=== PATIENT | male | born 1995 | race Caucasian/White ===

== ENCOUNTER 2019-04-15 14:51 | Emergency (ER) | payer BC ==
[~2019-04-15] VITALS: Ht 180.3 cm; Wt 94.0 kg
[2019-04-15 15:03] VITALS: BP 106/53
[2019-04-15] MEDS ORDERED: loperamide 2mg capsule PO ONE (15:20)
[2019-04-15] MEDS ORDERED: ondansetron 4mg rapidly disintigrating tab PO ONE (15:20)
[2019-04-15] MEDS ORDERED: ONDA4TAB6 PO (15:35)
== END 2019-04-15 15:49 | disposition home or self-care (01) ==
LOC: EDSEX 14:51 → ER 14:51
DX: R19.7 Diarrhea, unspecified (principal); R10.84 Generalized abdominal pain; F17.200 Nicotine dependence, unspecified, uncomplicated; Z79.899 Other long term (current) drug therapy
CPT/HCPCS: 99283; J2405

== ENCOUNTER 2019-05-19 07:59 | Emergency (ER) | payer BC ==
[~2019-05-19] VITALS: Ht 180.3 cm; Wt 93.3 kg
[~2019-05-19 07:59] MED LIST: ONDA4TAB6 PO
[2019-05-19] MEDS ORDERED: sucralfate 1gm/10ml UD suspension PO ONE (08:25)
[2019-05-19] MEDS ORDERED: LIDOcaine Viscous 15ml cup MM ONE (08:25)
[2019-05-19] MEDS ORDERED: pantoprazole 40mg Tablet.DR PO ONE (08:25)
[2019-05-19 08:29] LABS: BASOPHILS % (AUTO) 0.6 % (0-1); EOSINOPHILS # (AUTO) 0.2 X10'3 (0-0.9); EOSINOPHILS % (AUTO) 3.1 % (0-6); HEMATOCRIT 43.2 % (42.0-52.0); HEMOGLOBIN 14.8 g/dl (14.0-17.9); LYMPHOCYTES # (AUTO) 2.8 X10'3 (1.1-4.8); LYMPHOCYTES % (AUTO) 44.4 % (21-51); MEAN CORPUSCULAR HEMOGLOBIN 32.6 PG (27.0-31.0); MEAN CORPUSCULAR HGB CONC 34.3 g/dL (33.0-36.5); MEAN CORPUSCULAR VOLUME 95.1 FL (78-98); MEAN PLATELET VOLUME 8.1 FL (7.4-10.4); MONOCYTES # (AUTO) 0.9 X10'3 (0-0.9); NEUTROPHILS # (AUTO) 2.4 X10'3 (1.8-7.7); NEUTROPHILS % (AUTO) 37.9 % (42-75); PLATELET COUNT 278 X10'3 (140-440); RED BLOOD COUNT 4.54 X10'6 (4.70-6.10); RED CELL DISTRIBUTION WIDTH 13.2 % (11.5-14.5); WHITE BLOOD COUNT 6.2 X10'3 (4.5-11.0)
[2019-05-19 08:30] LABS: CLARITY,URINE CLEAR (Clear); COLOR,URINE YELLOW (Yellow); GLUCOSE, URINE NEGATIVE (Neg); KETONES,URINE NEGATIVE (Neg); LEUKOCYTE ESTERASE ,URINE NEGATIVE (Neg); NITRITES, URINE NEGATIVE (Neg); OCCULT BLOOD,URINE NEGATIVE (Neg); PH,URINE 8.5 (4.8-8.0); PROTEIN,URINE NEGATIVE (Neg); UROBILINOGEN,URINE 0.2 E.U/dL (0.2-1.0)
[2019-05-19 08:33] LABS: UA COLLECTION TYPE CLN CATCH MIDSTREAM
[2019-05-19 08:39] LABS: ALANINE AMINOTRANSFERASE 25 U/L (12-78); ALBUMIN/GLOBULIN RATIO 1.2 (1.1-1.5); ALKALINE PHOSPHATASE 79 IU/L (46-116); ANION GAP 8 (8-16); ASPARTATE AMINO TRANSFERASE 17 U/L (10-37); BILIRUBIN,TOTAL 0.3 MG/DL (0.1-1.0); BLOOD UREA NITROGEN 16 MG/DL (7-18); BUN/CREATININE RATIO 14.8 (5.4-32.0); CALCIUM 9.2 MG/DL (8.5-10.1); CHLORIDE 105 MMOL/L (99-107); CREATININE 1.08 MG/DL (0.60-1.10); GLUCOSE 109 MG/DL (70-104); LIPASE 95 U/L (73-393); POTASSIUM 4.2 MMOL/L (3.5-5.1); SODIUM 143 MMOL/L (135-145); TOTAL CARBON DIOXIDE 29.8 MMOL/L (24-32); TOTAL PROTEIN 7.4 G/DL (6.4-8.2); eGFR 83 ML/MIN
[2019-05-19] MEDS ORDERED: SUCR1TAB34 PO (08:52)
[2019-05-19] MEDS ORDERED: PANT-47 PO (08:52)
[2019-05-19 09:13] VITALS: BP 125/75
== END 2019-05-19 09:14 | disposition home or self-care (01) ==
LOC: ER 08:00
DX: R10.13 Epigastric pain (principal); K21.9 Gastro-esophageal reflux disease without esophagitis
CPT/HCPCS: 36415; 80053; 81003; 83690; 85025; 85610; 99284

== ENCOUNTER 2019-10-02 20:04 | Emergency (ER) | payer BC, MEDICAID ==
[~2019-10-02] VITALS: Ht 180.3 cm; Wt 91.0 kg
[~2019-10-02 20:04] MED LIST changes: +PANT-47 PO; +SUCR1TAB34 PO
[2019-10-02] MEDS ORDERED: IBUP-1984 PO (21:57)
[2019-10-02 22:11] VITALS: BP 130/80
== END 2019-10-02 22:12 | disposition home or self-care (01) ==
LOC: ER 20:05
DX: M70.22 Olecranon bursitis, left elbow (principal); Z79.899 Other long term (current) drug therapy; Y93.89 Activity, other specified
CPT/HCPCS: 99282

== ENCOUNTER 2023-03-21 10:21 | Inpatient (IN) | payer BC, MEDICAID, OTHER ==
[~2023-03-21] VITALS: Ht 180.3 cm; Wt 85.7 kg
[2023-03-21] MEDS ORDERED: ondansetron/PF 4mg/2ml inj IV ONE (11:50)
[2023-03-21] MEDS ORDERED: morphine 4 MG/ML inj SYRINge IV ONE (11:50)
[2023-03-21 12:21] LABS: BASOPHILS # (AUTO) 0.2 X10'3 (0-0.2); BASOPHILS % (AUTO) 1.3 % (0-1); EOSINOPHILS % (AUTO) 0.2 % (0-6); HEMATOCRIT 43.8 % (42.0-52.0); LYMPHOCYTES # (AUTO) 1.6 X10'3 (1.1-4.8); LYMPHOCYTES % (AUTO) 11.5 % (21-51); MEAN CORPUSCULAR HEMOGLOBIN 32.5 PG (27.0-31.0); MEAN CORPUSCULAR HGB CONC 34.3 g/dL (33.0-36.5); MEAN CORPUSCULAR VOLUME 94.8 FL (78-98); MEAN PLATELET VOLUME 8.3 FL (7.4-10.4); MONOCYTES # (AUTO) 1.6 X10'3 (0-0.9); MONOCYTES % (AUTO) 11.9 % (2-12); NEUTROPHILS # (AUTO) 10.4 X10'3 (1.8-7.7); NEUTROPHILS % (AUTO) 75.1 % (42-75); PLATELET COUNT 245 X10'3 (140-440); RED BLOOD COUNT 4.62 X10'6 (4.70-6.10); RED CELL DISTRIBUTION WIDTH 12.9 % (11.5-14.5); WHITE BLOOD COUNT 13.8 X10'3 (4.5-11.0)
--- NOTE | 2023-03-21 12:27 | NUR ---
VASCULAR AT BEDSIDE
[2023-03-21 12:39] LABS: ALANINE AMINOTRANSFERASE 954 U/L (12-78); ALBUMIN 3.5 G/DL (3.4-5.0); ALBUMIN/GLOBULIN RATIO 0.9 (1.1-1.5); ALKALINE PHOSPHATASE 74 IU/L (46-116); ANION GAP 15 (8-16); BILIRUBIN,TOTAL 0.7 MG/DL (0.1-1.0); BLOOD UREA NITROGEN 90 MG/DL (7-18); CALCIUM 9.2 MG/DL (8.5-10.1); CHLORIDE 90 MMOL/L (99-107); CREATININE 6.93 MG/DL (0.60-1.10); GLUCOSE 116 MG/DL (70-104); POTASSIUM 4.6 MMOL/L (3.5-5.1); SODIUM 129 MMOL/L (135-145); TOTAL CARBON DIOXIDE 24.5 MMOL/L (24-32); TOTAL PROTEIN 7.2 G/DL (6.4-8.2); eGFR 9 ML/MIN
[2023-03-21 12:42] LABS: ASPARTATE AMINO TRANSFERASE 1921 U/L (10-37)
[2023-03-21] MEDS ORDERED: CefTRIAXone 2gm/D5W 50ml BAG 50 ML IV ONE (13:00)
[2023-03-21] MEDS ORDERED: normal saline 1000ml 1,000 ML IV ONE ×3 (13:00→15:00)
[2023-03-21 13:34] LABS: MAGNESIUM 2.5 MG/DL (1.5-2.4)
[2023-03-21] MEDS ORDERED: CLINDAMYCIN 600mg IN NS 50ML 50 ML IV ONE (14:00)
[2023-03-21] MEDS ORDERED: clindamycin 600mg/D5W 50ml 50 ML IV ONE (14:05)
[2023-03-21 14:30] LABS: CREATINE KINASE 77837 U/L (39-308)
[2023-03-21] MEDS ORDERED: LidoCAINE 2% Topical Jelly 11mL syringe TOP ONE (15:00)
[2023-03-21] MEDS ORDERED: sodium bicarbonate 1meq/ml syr 150 ML in dextrose 5%-water 850 ML IV SCH (15:15)
[2023-03-21] MEDS: sodium bicarbonate 1meq/ml syr 150 ML in dextrose 5%-water 1,000 ML IV SCH (15:15)
[2023-03-21] MEDS ORDERED: vancomycin/NS 1 GM ADD-VANTAGE 250 ML IV ONE (15:25)
[2023-03-21] MEDS ORDERED: ACYC-126 PO (15:40)
[2023-03-21 16:11] LABS: CLARITY,URINE SLIGHTLY CLOUDY (Clear); COLOR,URINE YELLOW (Yellow); GLUCOSE, URINE NEGATIVE (Neg); KETONES,URINE NEGATIVE (Neg); LEUKOCYTE ESTERASE ,URINE NEGATIVE (Neg); NITRITES, URINE NEGATIVE (Neg); OCCULT BLOOD,URINE MODERATE (Neg); PH,URINE 5.5 (4.8-8.0); PROTEIN,URINE 30 mg/dl (Neg); UROBILINOGEN,URINE 0.2 E.U/dL (0.2-1.0)
[2023-03-21 16:14] LABS: UA COLLECTION TYPE FOLEY CATH
[2023-03-21 16:24] LABS: BACTERIA,URINE 1+ /HPF (Neg)
[2023-03-21 16:25] LABS: SQUAMOUS EPITHELIAL CELL,UR NONE SEEN /LPF (FEW)
[2023-03-21] MEDS ORDERED: magnesium hydroxide 30ml (MOM) UD suspension PO PRN (16:30)
[2023-03-21] MEDS ORDERED: magnesium 4gm in 100ml NS 100 ML IV PRN (16:30)
[2023-03-21] MEDS ORDERED: magnesium 2GM in 50ml NS 50 ML IV PRN (16:30)
[2023-03-21] MEDS ORDERED: mag hydrox/Alum hydrox/simeth 30ml oral suspension PO PRN (16:30)
[2023-03-21] MEDS ORDERED: potassium Cl 20 mEq SR tablet PO PRN ×2 (16:30)
[2023-03-21] MEDS ORDERED: magnesium Cl slow-release 64mg tablet PO PRN (16:30)
[2023-03-21] MEDS ORDERED: potassium Cl 40MEQ/1/2NS 520ml 520 ML IV PRN (16:30)
[2023-03-21] MEDS ORDERED: morphine 2 MG/ML inj. syringe IV PRN (16:30)
[2023-03-21] MEDS: normal saline 1000ml 1,000 ML IV SCH ×2 (16:30→23:10)
[2023-03-21 16:37] LABS: URINE AMPHETAMINE SCREEN NEGATIVE (Neg); URINE BARBITUATE SCREEN NEGATIVE (Neg); URINE BENZODIAZEPINES SCREEN NEGATIVE (Neg); URINE CANNABINOID SCREEN POSITIVE (Neg); URINE COCAINE SCREEN NEGATIVE (Neg); URINE METHADONE SCREEN NEGATIVE (Neg); URINE OPIATE SCREEN POSITIVE (Neg); URINE PHENCYCLIDINE SCREEN NEGATIVE (Neg)
[2023-03-21 17:21] LABS: PHOSPHORUS 4.9 MG/DL (2.3-4.5)
[2023-03-21] MEDS ORDERED: vancomycin 1000 MG in NS 250ml X 1 ER IV PRN (17:25)
--- NOTE | 2023-03-21 19:20 | NUR ---
Pt arrived to unit from ED. A+O x4, 16Fr Ye in place. Admitted for cellulitis of the right arm. Pt was transported via hospital bed and 3 er transport staff.
[2023-03-21 19:30] VITALS: BP 158/90; PULSE 59; RESP 22; TEMP 98.5; O2SAT 96
[2023-03-21] MEDS: K and/or MAG REPLACEMENT MC SCH (20:00)
[2023-03-21 20:16] LABS: CREATINE KINASE 64881 U/L (39-308)
[2023-03-21] MEDS ORDERED: LORazepam 1 MG tablet PO ONE ×2 (20:30)
[2023-03-21 22:00] VITALS: BP 149/97; PULSE 62; RESP 20; TEMP 99.3; O2SAT 95
[2023-03-21] MEDS: ondansetron/PF 4mg/2ml inj IV PRN (22:43)
[2023-03-21] MEDS: morphine 2 MG/ML inj. syringe IV PRN (22:56)
[2023-03-21] MEDS: docusate sod 100mg capsule PO SCH (23:00)
[2023-03-22] VITALS (8 sets, daily range): BP systolic 140–190; BP diastolic 80–115; PULSE 50–75; RESP 16–25; TEMP 97–99; O2SAT 96–99
--- NOTE | 2023-03-22 01:56 | NUR ---
spoke top pharmacist regarding bicarb, clindamycin, and NS compatibility into one IV with Y site. Pharmacist stated it is fine to run them all into the same IV.
[2023-03-22] MEDS: sodium bicarbonate 1meq/ml syr 150 ML in dextrose 5%-water 1,000 ML IV SCH ×2 (02:02→13:46)
[2023-03-22] MEDS ORDERED: amLODIPine 2.5mg tablet PO ONE (02:45)
--- NOTE | 2023-03-22 02:46 | NUR ---
Nurse took 0200 VS on pt. BP via automatic cuff was 209/101 P-50, BP manually was 190/100. Dr. Figueroa was notified and ordered 2.5mg Norvasc po one time only, NORB.
[2023-03-22] MEDS ORDERED: VANCOMYCIN LEVEL IV ONE (03:00)
--- NOTE | 2023-03-22 06:35 | NUR ---
Problems reprioritized. Patient report given, questions answered & plan of care reviewed with Randi RN. Pt stable at shift change.
[2023-03-22 07:24] LABS: BASOPHILS % (AUTO) 0.4 % (0-1); EOSINOPHILS % (AUTO) 0.2 % (0-6); HEMATOCRIT 38.2 % (42.0-52.0); HEMOGLOBIN 13.3 g/dl (14.0-17.9); LYMPHOCYTES % (AUTO) 18.4 % (21-51); MEAN CORPUSCULAR HEMOGLOBIN 33.3 PG (27.0-31.0); MEAN CORPUSCULAR HGB CONC 34.9 g/dL (33.0-36.5); MEAN CORPUSCULAR VOLUME 95.3 FL (78-98); MEAN PLATELET VOLUME 8.3 FL (7.4-10.4); MONOCYTES # (AUTO) 1.3 X10'3 (0-0.9); MONOCYTES % (AUTO) 11.4 % (2-12); NEUTROPHILS # (AUTO) 7.7 X10'3 (1.8-7.7); NEUTROPHILS % (AUTO) 69.6 % (42-75); PLATELET COUNT 188 X10'3 (140-440); RED BLOOD COUNT 4.01 X10'6 (4.70-6.10); RED CELL DISTRIBUTION WIDTH 12.7 % (11.5-14.5); WHITE BLOOD COUNT 11.1 X10'3 (4.5-11.0)
[2023-03-22 07:33] LABS: ALANINE AMINOTRANSFERASE 610 U/L (12-78); ALBUMIN 2.7 G/DL (3.4-5.0); ALBUMIN/GLOBULIN RATIO 0.9 (1.1-1.5); ALKALINE PHOSPHATASE 75 IU/L (46-116); ANION GAP 15 (8-16); ASPARTATE AMINO TRANSFERASE 768 U/L (10-37); BILIRUBIN,TOTAL 0.6 MG/DL (0.1-1.0); BLOOD UREA NITROGEN 97 MG/DL (7-18); BUN/CREATININE RATIO 12.2 (10.0-20.0); CALCIUM 8.5 MG/DL (8.5-10.1); CHLORIDE 95 MMOL/L (99-107); CREATININE 7.92 MG/DL (0.60-1.10); GLUCOSE 121 MG/DL (70-104); MAGNESIUM 2.4 MG/DL (1.5-2.4); POTASSIUM 4.1 MMOL/L (3.5-5.1); SODIUM 132 MMOL/L (135-145); TOTAL CARBON DIOXIDE 22.3 MMOL/L (24-32); TOTAL PROTEIN 5.8 G/DL (6.4-8.2); eGFR 8 ML/MIN
[2023-03-22] MEDS ORDERED: ACYC-126 PO (07:53)
[2023-03-22 07:55] LABS: VANCOMYCIN,RANDOM 13.6 UG/ML
[2023-03-22] MEDS: clindamycin 600mg/D5W 50ml 50 ML IV SCH ×3 (08:24→15:46)
[2023-03-22] MEDS: CefTRIAXone/D5W-Rocephin 1gm 50 ML IV SCH (08:25)
[2023-03-22] MEDS: docusate sod 100mg capsule PO SCH ×2 (08:25→21:25)
[2023-03-22] MEDS: morphine 2 MG/ML inj. syringe IV PRN ×3 (08:25→21:27)
[2023-03-22] MEDS: normal saline 1000ml 1,000 ML IV SCH ×3 (08:26→19:10)
[2023-03-22] MEDS: heparin, porcine 5000 units/ml vial SQ SCH ×3 (08:35→15:46)
[2023-03-22] MEDS: K and/or MAG REPLACEMENT MC SCH (08:35)
--- NOTE | 2023-03-22 12:46 | NUR ---
ASSISTING RN WITH ADMISSION WORK, FAMILY AT BEDSIDE, PLAN OF CARE GIVEN, ANSWERED QUESTIONS. FAMILY SAID PT HAD BEEN WELL WITH RECOVERY, USE TO BE HEAVY ETOH ABUSE, ADMITS TO RECENTLY USING FENTANYL AND METH. REPORT TO PRIMARY RN
--- NOTE | 2023-03-22 12:49 | NUR ---
DO DIETZ, FATHER, MOOK CONKLIN, MOTHER,
--- NOTE | 2023-03-22 13:36 | NUR ---
Received order for consult. Met with patient in regards to substance use and to see if patient is interested in resources for treatment options. Patient is interested in outpatient resources. I talked to patient about medication to help with cravings. I gave patient a card for [facility] and my card to call me for any questions.
[2023-03-22] MEDS ORDERED: vancomycin 1000 MG in NS 250ml X 1 ER IV ONE (15:00)
--- NOTE | 2023-03-22 18:20 | NUR ---
Patient in room PCU 3018. I have received report from DICKSON Bryan and had the opportunity to ask questions and assume patient care.
[2023-03-22 19:03] LABS: CREATINE KINASE 27544 U/L (39-308)
[2023-03-23] MEDS: clindamycin 600mg/D5W 50ml 50 ML IV SCH ×3 (00:15→17:45)
[2023-03-23] MEDS: heparin, porcine 5000 units/ml vial SQ SCH ×3 (00:15→16:00)
[2023-03-23] MEDS: normal saline 1000ml 1,000 ML IV SCH ×3 (01:39→15:10)
[2023-03-23] MEDS: morphine 2 MG/ML inj. syringe IV PRN ×3 (01:40→20:07)
[2023-03-23 02:00] VITALS: BP 156/105; PULSE 54; RESP 14; TEMP 97.3; O2SAT 96
[2023-03-23] MEDS: VANCOMYCIN LEVEL IV SCH (03:00)
--- NOTE | 2023-03-23 06:27 | NUR ---
Problems reprioritized. Patient report given, questions answered & plan of care reviewed with DICKSON Bryan.
[2023-03-23 07:00] VITALS: BP 161/111; PULSE 53; RESP 14; TEMP 98; O2SAT 98
--- NOTE | 2023-03-23 07:04 | NUR ---
PATIENTS RIGHT ARM HAS GOTTEN PROGRESSIVLELY WORSE SINCE YESTERDAY WHEN I HAD PATIENT. THE ENTIRE ARM FROM HIS HAND TO HIS SHOULDER IS ROCK HARD AND HOT. YESTERDAY, THE FOREARM WAS ROCK HARD AND THE UPPER PART OF THE ARM WAS SOFTER. IMMEDIATELY CALLED DR NOVAK WHO CONSULTED ON PATIENT (ORTHO) AND HE DIDNT THINK ITS COMPARTMENT SYNDROME AT THIS POINT IT HAS BEEN WELL PAST 48 HOURS SINCE PATIENT HAD UNKNOWN TRAUMA/INGESTION OF DRUGS. NO NEW ORDERS RECEIVED FROM DR NOVAK. I THEN NOTIFIED DR BROOKS, RESIDENT WHO IS ASSIGNED TO PATIENT TODAY. SHE WILL COME AND ASSESS, NO NEW ORDERS EITHER. PT HAD HIS ARM IN A SLING AND IT WAS ELEVATED MOST OF THE NIGHT PER PATIENT AND THE NOC SHIFT RN. ARM ALSO IS HOT TO TOUCH AND PATIENT STATES HE CAN HARDLY MOVE HIS ARM AT ALL, 8/10 PAIN. WILL CONTINUE TO CLOSELY MONITOR
[2023-03-23] MEDS: CefTRIAXone/D5W-Rocephin 1gm 50 ML IV SCH (07:41)
[2023-03-23] MEDS: docusate sod 100mg capsule PO SCH ×2 (07:42→20:00)
[2023-03-23] MEDS: ondansetron/PF 4mg/2ml inj IV PRN ×2 (07:55→17:45)
[2023-03-23 08:01] LABS: SODIUM,URINE RANDOM < 15 MEQ/L
[2023-03-23 08:03] LABS: BASOPHILS % (AUTO) 0.3 % (0-1); EOSINOPHILS # (AUTO) 0.1 X10'3 (0-0.9); EOSINOPHILS % (AUTO) 0.4 % (0-6); HEMATOCRIT 42.5 % (42.0-52.0); HEMOGLOBIN 14.9 g/dl (14.0-17.9); LYMPHOCYTES # (AUTO) 2.4 X10'3 (1.1-4.8); LYMPHOCYTES % (AUTO) 19.6 % (21-51); MEAN CORPUSCULAR HEMOGLOBIN 33.3 PG (27.0-31.0); MEAN CORPUSCULAR HGB CONC 35.1 g/dL (33.0-36.5); MEAN PLATELET VOLUME 8.5 FL (7.4-10.4); MONOCYTES # (AUTO) 1.5 X10'3 (0-0.9); MONOCYTES % (AUTO) 12.1 % (2-12); NEUTROPHILS # (AUTO) 8.3 X10'3 (1.8-7.7); NEUTROPHILS % (AUTO) 67.6 % (42-75); PLATELET COUNT 227 X10'3 (140-440); RED BLOOD COUNT 4.48 X10'6 (4.70-6.10); RED CELL DISTRIBUTION WIDTH 12.6 % (11.5-14.5); WHITE BLOOD COUNT 12.2 X10'3 (4.5-11.0)
[2023-03-23] MEDS: amLODIPine 5mg tablet PO SCH ×2 (08:10→17:46)
[2023-03-23 08:38] LABS: ALANINE AMINOTRANSFERASE 453 U/L (12-78); ALBUMIN 2.6 G/DL (3.4-5.0); ALBUMIN/GLOBULIN RATIO 0.8 (1.1-1.5); ALKALINE PHOSPHATASE 77 IU/L (46-116); ANION GAP 19 (8-16); ASPARTATE AMINO TRANSFERASE 381 U/L (10-37); BILIRUBIN,TOTAL 0.6 MG/DL (0.1-1.0); BLOOD UREA NITROGEN 104 MG/DL (7-18); BUN/CREATININE RATIO 11.6 (10.0-20.0); CALCIUM 8.2 MG/DL (8.5-10.1); CHLORIDE 89 MMOL/L (99-107); CREATININE 8.95 MG/DL (0.60-1.10); GLUCOSE 103 MG/DL (70-104); MAGNESIUM 2.1 MG/DL (1.5-2.4); POTASSIUM 3.8 MMOL/L (3.5-5.1); SODIUM 130 MMOL/L (135-145); TOTAL CARBON DIOXIDE 22.2 MMOL/L (24-32); TOTAL PROTEIN 5.8 G/DL (6.4-8.2); VANCOMYCIN,RANDOM 21.1 UG/ML; eGFR 7 ML/MIN
[2023-03-23 10:03] LABS: OSMOLALITY UA 172 MOSM/K (50-1400)
[2023-03-23] MEDS ORDERED: LIDOcaine 1% 30ml preserv. free vial ONE (12:29)
[2023-03-23] MEDS ORDERED: heparin 1,000unit/ml 10ml vial 10 ML ONE (12:29)
[2023-03-23] MEDS ORDERED: diphenhydrAMINE 50 mg/ml inj ONE (12:30)
[2023-03-23] MEDS ORDERED: fentaNYL/PF 50MCG/1 ML 2ML syringe ONE (12:30)
[2023-03-23] MEDS ORDERED: heparin 1,000unit/ml 10ml vial 10 ML IV ONE (13:00)
[2023-03-23] MEDS ORDERED: albumin (human) 25% 100ml IV 100 ML IV PRN (13:00)
[2023-03-23] MEDS ORDERED: heparin 1,000 units/ml 10ml inj IV ONE (13:00)
[2023-03-23] MEDS ORDERED: mannitol 12.5gm/50mL VIAL IV ONE (13:00)
[2023-03-23] MEDS ORDERED: heparin 1,000 units/ml 10ml inj HE ONE ×2 (13:00)
[2023-03-23] MEDS ORDERED: hydrALAZINE 20mg/ml inj. IV STA (17:26)
--- NOTE | 2023-03-23 17:59 | NUR ---
FIRST HEMODIALYSIS FINISHED AND PATIENT TOLERATED WELL. BLOOD PRESSURE ACTUALLY WAS ELEVATED THROUGHOUT THE PROCEDURE. DR GEORGES IN TO SEE PATIENT AND SPOKE WITH THE PATIENT AND FATHER ABOUT PLAN OF CARE. ORDERS RECEIVED FOR A ONE TIME DOSE OF HYDRALZINE AND TO GIVE THE NORVASC THAT WAS HELD FOR HD. PT CONTINUES TO HAVE NAUSEA AND ACTUALLY IS HAVING LOOSE STOOL. WILL CONTINUE TO MONITOR STOOL FOR ANY SIGNS OF INFECTION. ORDERS RECEIVED FOR MRI OF THE RIGHT ARM. FAMILY DISCUSSED THEIR CONCERNS ABOUT THE ARM WITH THE "ADVISEMENT" TO CORRELATE WITH AN MRI. FAMILY AT BEDSIDE CURRENTLY, AND PT APPEARS TO BE IN GOOD SPIRITS
[2023-03-23 18:00] VITALS: BP 165/96; PULSE 71; RESP 15; TEMP 98; O2SAT 100
--- NOTE | 2023-03-23 18:30 | NUR ---
Patient in room PCU 3018. I have received report from Randi and had the opportunity to ask questions and assume patient care.
[2023-03-23 20:00] VITALS: RESP 15; O2SAT 95
[2023-03-23 22:03] VITALS: BP 151/101; PULSE 68; RESP 18; TEMP 98.4; O2SAT 98
--- NOTE | 2023-03-23 22:09 | NUR ---
Pt upset as he had an incontinent BM in bed and was frustrated with that, frustrated with being in hospital, and being in this condition. Reassured pt that it was OK , even appropriate to be frustrated. Helped pt to bathroom where we sat him on the toilet, got him cleaned, bed, linen, and gown changed, washed pt feet with soap and water per patient request as he felt he may have stepped in some fecal matter. Pt back in bed, much less frustrated, with clean linens and clean feet.
[2023-03-24] VITALS (11 sets, daily range): BP systolic 112–183; BP diastolic 31–100; PULSE 60–85; RESP 12–21; TEMP 97.9–99.1; O2SAT 95–98
[2023-03-24] MEDS: morphine 2 MG/ML inj. syringe IV PRN ×2 (00:22→05:09)
[2023-03-24] MEDS: heparin, porcine 5000 units/ml vial SQ SCH ×4 (00:22→23:51)
[2023-03-24] MEDS: clindamycin 600mg/D5W 50ml 50 ML IV SCH ×4 (00:23→23:46)
--- NOTE | 2023-03-24 00:45 | NUR ---
Pt BP at 183/100 HR 67, pt c/o headache. Dr. Figueroa call and advised who ordered Norvasc 2.5mg PO X1
[2023-03-24] MEDS ORDERED: amLODIPine 2.5mg tablet PO ONE ×2 (00:50→04:45)
[2023-03-24] MEDS: VANCOMYCIN LEVEL IV SCH (03:00)
[2023-03-24] MEDS: acetaminophen 325mg tablet PO PRN ×3 (05:15→23:51)
--- NOTE | 2023-03-24 06:13 | NUR ---
Problems reprioritized. Patient report given, questions answered & plan of care reviewed with Randi.
[2023-03-24 07:11] LABS: BASOPHILS % (AUTO) 0.1 % (0-1); EOSINOPHILS # (AUTO) 0.1 X10'3 (0-0.9); HEMATOCRIT 38.6 % (42.0-52.0); HEMOGLOBIN 13.6 g/dl (14.0-17.9); LYMPHOCYTES % (AUTO) 18.4 % (21-51); MEAN CORPUSCULAR HEMOGLOBIN 33.6 PG (27.0-31.0); MEAN CORPUSCULAR HGB CONC 35.1 g/dL (33.0-36.5); MEAN CORPUSCULAR VOLUME 95.8 FL (78-98); MEAN PLATELET VOLUME 8.5 FL (7.4-10.4); MONOCYTES # (AUTO) 1.5 X10'3 (0-0.9); MONOCYTES % (AUTO) 13.7 % (2-12); NEUTROPHILS # (AUTO) 7.3 X10'3 (1.8-7.7); NEUTROPHILS % (AUTO) 66.8 % (42-75); PLATELET COUNT 207 X10'3 (140-440); RED BLOOD COUNT 4.03 X10'6 (4.70-6.10); RED CELL DISTRIBUTION WIDTH 12.5 % (11.5-14.5)
[2023-03-24 07:24] LABS: ALANINE AMINOTRANSFERASE 304 U/L (12-78); ALBUMIN 2.3 G/DL (3.4-5.0); ALBUMIN/GLOBULIN RATIO 0.8 (1.1-1.5); ALKALINE PHOSPHATASE 63 IU/L (46-116); ANION GAP 11 (8-16); ASPARTATE AMINO TRANSFERASE 223 U/L (10-37); BILIRUBIN,TOTAL 0.4 MG/DL (0.1-1.0); BLOOD UREA NITROGEN 92 MG/DL (7-18); BUN/CREATININE RATIO 10.8 (10.0-20.0); CHLORIDE 92 MMOL/L (99-107); CREATININE 8.49 MG/DL (0.60-1.10); GLUCOSE 100 MG/DL (70-104); POTASSIUM 3.7 MMOL/L (3.5-5.1); SODIUM 124 MMOL/L (135-145); TOTAL CARBON DIOXIDE 20.8 MMOL/L (24-32); TOTAL PROTEIN 5.1 G/DL (6.4-8.2); VANCOMYCIN,RANDOM 14.8 UG/ML; eGFR 7 ML/MIN
[2023-03-24] MEDS: docusate sod 100mg capsule PO SCH ×2 (08:00→20:00)
[2023-03-24] MEDS: CefTRIAXone/D5W-Rocephin 1gm 50 ML IV SCH (08:39)
[2023-03-24] MEDS: ondansetron/PF 4mg/2ml inj IV PRN ×2 (08:57→23:49)
[2023-03-24] MEDS ORDERED: heparin 1,000 units/ml 10ml inj IV ONE (10:10)
[2023-03-24] MEDS ORDERED: heparin 1,000unit/ml 10ml vial 10 ML IV ONE (10:10)
[2023-03-24] MEDS ORDERED: albumin (human) 25% 100ml IV 100 ML IV PRN (10:10)
[2023-03-24] MEDS ORDERED: heparin 1,000 units/ml 10ml inj HE ONE ×2 (10:15)
[2023-03-24 10:41] LABS: CREATINE KINASE 9811 U/L (39-308)
[2023-03-24] MEDS ORDERED: vancomycin/NS 1 GM ADD-VANTAGE 250 ML X 1 DOSE IV ONE (11:00)
--- NOTE | 2023-03-24 18:20 | NUR ---
Patient in room PCU 3018. I have received report from Kristen FORMAN and had the opportunity to ask questions and assume patient care.
[2023-03-25] VITALS (7 sets, daily range): BP systolic 149–162; BP diastolic 90–110; PULSE 70–85; RESP 12–20; TEMP 97.4–98.8; O2SAT 95–99
[2023-03-25] MEDS: VANCOMYCIN LEVEL IV SCH (03:00)
--- NOTE | 2023-03-25 06:42 | NUR ---
Patient in room PCU 3018. I have received report from YOUSIF WINSTON, and had the opportunity to ask questions and assume patient care.
--- NOTE | 2023-03-25 06:45 | NUR ---
Problems reprioritized. Patient report given, questions answered & plan of care reviewed with Mojgan FORMAN.
[2023-03-25 07:34] LABS: BASOPHILS % (AUTO) 0.5 % (0-1); EOSINOPHILS # (AUTO) 0.3 X10'3 (0-0.9); EOSINOPHILS % (AUTO) 2.6 % (0-6); HEMATOCRIT 36.1 % (42.0-52.0); HEMOGLOBIN 12.8 g/dl (14.0-17.9); LYMPHOCYTES # (AUTO) 2.3 X10'3 (1.1-4.8); LYMPHOCYTES % (AUTO) 22.4 % (21-51); MEAN CORPUSCULAR HEMOGLOBIN 33.5 PG (27.0-31.0); MEAN CORPUSCULAR HGB CONC 35.5 g/dL (33.0-36.5); MEAN CORPUSCULAR VOLUME 94.6 FL (78-98); MEAN PLATELET VOLUME 8.3 FL (7.4-10.4); MONOCYTES # (AUTO) 1.6 X10'3 (0-0.9); MONOCYTES % (AUTO) 15.6 % (2-12); NEUTROPHILS % (AUTO) 58.9 % (42-75); PLATELET COUNT 190 X10'3 (140-440); RED BLOOD COUNT 3.82 X10'6 (4.70-6.10); RED CELL DISTRIBUTION WIDTH 12.6 % (11.5-14.5); WHITE BLOOD COUNT 10.2 X10'3 (4.5-11.0)
[2023-03-25] MEDS: clindamycin 600mg/D5W 50ml 50 ML IV SCH ×2 (07:35→16:07)
[2023-03-25] MEDS: docusate sod 100mg capsule PO SCH ×2 (08:00→19:15)
[2023-03-25 08:09] LABS: ALANINE AMINOTRANSFERASE 258 U/L (12-78); ALBUMIN 2.4 G/DL (3.4-5.0); ALBUMIN/GLOBULIN RATIO 0.9 (1.1-1.5); ALKALINE PHOSPHATASE 56 IU/L (46-116); ANION GAP 12 (8-16); ASPARTATE AMINO TRANSFERASE 169 U/L (10-37); BILIRUBIN,TOTAL 0.4 MG/DL (0.1-1.0); BLOOD UREA NITROGEN 75 MG/DL (7-18); BUN/CREATININE RATIO 10.2 (10.0-20.0); CALCIUM 7.8 MG/DL (8.5-10.1); CHLORIDE 93 MMOL/L (99-107); CREATININE 7.34 MG/DL (0.60-1.10); GLUCOSE 97 MG/DL (70-104); MAGNESIUM 2.1 MG/DL (1.5-2.4); POTASSIUM 3.5 MMOL/L (3.5-5.1); SODIUM 127 MMOL/L (135-145); TOTAL CARBON DIOXIDE 22.1 MMOL/L (24-32); TOTAL PROTEIN 5.2 G/DL (6.4-8.2); VANCOMYCIN,RANDOM 19.9 UG/ML; eGFR 9 ML/MIN
[2023-03-25] MEDS: CefTRIAXone/D5W-Rocephin 1gm 50 ML IV SCH (08:24)
[2023-03-25] MEDS: heparin, porcine 5000 units/ml vial SQ SCH ×2 (08:26→16:12)
[2023-03-25] MEDS: amLODIPine 5mg tablet PO SCH (08:28)
[2023-03-25 08:41] LABS: CREATINE KINASE 6574 U/L (39-308)
[2023-03-25] MEDS ORDERED: heparin 1,000unit/ml 10ml vial 10 ML IV ONE (09:15)
[2023-03-25] MEDS ORDERED: heparin 1,000 units/ml 10ml inj IV ONE (09:15)
[2023-03-25] MEDS ORDERED: albumin (human) 25% 100ml IV 100 ML IV PRN (09:15)
[2023-03-25] MEDS ORDERED: heparin 1,000 units/ml 10ml inj HE ONE ×2 (09:20)
--- NOTE | 2023-03-25 17:41 | NUR ---
PT WAS RELUCTANT TO HAVE HIS FC REMOVED. THE WATER WAS REMOVED FROM THE BALLOON. EVENTUALLY ALLOWED THE NURSE TO REMOVE FC. PT REPORTS THAT HE HAS VOIDED IN THE TOILET. PT ASKED TO USE URINAL FOR ACCURATE I's AND O's.
--- NOTE | 2023-03-25 18:28 | NUR ---
NON ADMINISTERED HEPARIN ADMINISTERED BY DIALYSIS NURSE DURING HD. PER HD NURSE SHE DOESN'T HAVE COMPUTER ACCESS.
--- NOTE | 2023-03-25 18:30 | NUR ---
Problems reprioritized. Patient report given, questions answered & plan of care reviewed with YOUSIF GRADY.
[2023-03-25] MEDS: acyclovir 200 MG capsule PO SCH (19:53)
[2023-03-26] VITALS (7 sets, daily range): BP systolic 148–164; BP diastolic 94–101; PULSE 65–84; RESP 14–21; TEMP 97.6–99.2; O2SAT 97–99
[2023-03-26] MEDS: clindamycin 150mg capsule PO SCH ×2 (00:59→07:31)
[2023-03-26] MEDS: heparin, porcine 5000 units/ml vial SQ SCH ×3 (01:00→16:00)
[2023-03-26] MEDS: VANCOMYCIN LEVEL IV SCH (03:15)
--- NOTE | 2023-03-26 04:02 | NUR ---
COPY CAMERA OPERATOR documentation: I have reviewed and agree with assessment performed and documented by MIGUEL A Johnson
[2023-03-26 06:14] LABS: BASOPHILS % (AUTO) 0.5 % (0-1); EOSINOPHILS # (AUTO) 0.3 X10'3 (0-0.9); EOSINOPHILS % (AUTO) 2.9 % (0-6); HEMATOCRIT 37.2 % (42.0-52.0); HEMOGLOBIN 13.1 g/dl (14.0-17.9); LYMPHOCYTES # (AUTO) 2.6 X10'3 (1.1-4.8); MEAN CORPUSCULAR HEMOGLOBIN 33.5 PG (27.0-31.0); MEAN CORPUSCULAR HGB CONC 35.2 g/dL (33.0-36.5); MEAN CORPUSCULAR VOLUME 95.1 FL (78-98); MEAN PLATELET VOLUME 7.7 FL (7.4-10.4); MONOCYTES # (AUTO) 1.5 X10'3 (0-0.9); MONOCYTES % (AUTO) 14.8 % (2-12); NEUTROPHILS # (AUTO) 5.5 X10'3 (1.8-7.7); NEUTROPHILS % (AUTO) 55.8 % (42-75); PLATELET COUNT 193 X10'3 (140-440); RED BLOOD COUNT 3.91 X10'6 (4.70-6.10); RED CELL DISTRIBUTION WIDTH 12.7 % (11.5-14.5); WHITE BLOOD COUNT 9.8 X10'3 (4.5-11.0)
[2023-03-26 06:44] LABS: ALANINE AMINOTRANSFERASE 240 U/L (12-78); ALBUMIN 2.6 G/DL (3.4-5.0); ALBUMIN/GLOBULIN RATIO 0.9 (1.1-1.5); ALKALINE PHOSPHATASE 53 IU/L (46-116); ANION GAP 9 (8-16); ASPARTATE AMINO TRANSFERASE 137 U/L (10-37); BILIRUBIN,TOTAL 0.4 MG/DL (0.1-1.0); BLOOD UREA NITROGEN 59 MG/DL (7-18); BUN/CREATININE RATIO 9.5 (10.0-20.0); CALCIUM 8.3 MG/DL (8.5-10.1); CHLORIDE 96 MMOL/L (99-107); CREATININE 6.23 MG/DL (0.60-1.10); GLUCOSE 101 MG/DL (70-104); POTASSIUM 3.8 MMOL/L (3.5-5.1); SODIUM 130 MMOL/L (135-145); TOTAL CARBON DIOXIDE 24.6 MMOL/L (24-32); TOTAL PROTEIN 5.5 G/DL (6.4-8.2); VANCOMYCIN,RANDOM 10.9 UG/ML; eGFR 11 ML/MIN
[2023-03-26 06:45] LABS: CREATINE KINASE 4894 U/L (39-308)
--- NOTE | 2023-03-26 06:50 | NUR ---
Patient in room PCU 3018. I have received report from Slim FORMAN and had the opportunity to ask questions and assume patient care.
--- NOTE | 2023-03-26 06:52 | NUR ---
Patient in room PCU 3018. I have received report from MIGUEL A FORMAN and had the opportunity to ask questions and assume patient care.
[2023-03-26] MEDS ORDERED: vancomycin 1000 MG in NS 250ml X 1 ER IV ONE (07:10)
[2023-03-26] MEDS: acyclovir 200 MG capsule PO SCH ×3 (07:30→19:29)
[2023-03-26] MEDS: amLODIPine 5mg tablet PO SCH (07:31)
[2023-03-26] MEDS: CefTRIAXone/D5W-Rocephin 1gm 50 ML IV SCH (07:32)
[2023-03-26] MEDS: docusate sod 100mg capsule PO SCH ×2 (07:42→19:27)
--- NOTE | 2023-03-26 13:10 | NUR ---
Initial: Pt admit DX BAKARI, rhabdomyolysis, hyponatremia, and RUE cellulitis now transitioned to HD positive for fentanyl and opiates per EMR. PO improving up to ~92% avg meals past 2 days from admit meeting ~91% kcal and ~82% protein minimum estimated needs. RD attempted to see pt at bedside though pt not present. RD notified MD recommends Nepro ONS once daily WL to assist meeting estimated needs. LBM 03/24 per EMR. Will monitor for further nutrition intervention needs this admit. Rec: 1. continue renal diet; encourage PO 2. Nepro once daily WL to assist meeting needs 3. consider routine Phos levels and Phos binder per physician discretion; last Phos 4.9mg/dl 03/21 4. routine bowel care 5. scaled wt this admit; subsequent wt w/ HD Addendum: 03/26/23 at [address] Amended: Links added.
--- NOTE | 2023-03-26 15:52 | NUR ---
Orientee documentation: I have reviewed and agree with all interventions, assessments performed and documented by Emory FORMAN. Orientee Medication Administration: For this medication-pass time frame, all medication were reviewed, dispensed, administered and documented per hospital policy by Emory FORMAN.
--- NOTE | 2023-03-26 16:06 | NUR ---
PAGER ID: [phone] MESSAGE: DICKSON NAIR, [facility], [id number], [id number]. PT. BP 155/102, HR-73. HAS BEEN CONSISTENTLY ELEVETED ALL SHIFT. PT HAD AMLODIPINE THIS MORNING ONCE DAILY. NO OTHER HTN MEDS ON EMAR Addendum: 03/26/23 at 1825 by Herb Dangelo RN MD CAME TO SEE PT, AND ADDED ON LOBETOLOL 400MG PO FOR HTN
[2023-03-26 16:13] LABS: PHOSPHORUS 6.1 MG/DL (2.3-4.5)
--- NOTE | 2023-03-26 18:25 | NUR ---
Problems reprioritized. Patient report given TO MIGUEL A RN, questions answered & plan of care reviewed with .
[2023-03-26] MEDS: labetalol 100mg tablet PO SCH (19:30)
[2023-03-26] MEDS ORDERED: labetalol 100mg tablet PO SCH (20:00)
[2023-03-27] VITALS (7 sets, daily range): BP systolic 144–166; BP diastolic 82–95; PULSE 71–86; RESP 15–20; TEMP 97.9–99.3; O2SAT 95–99
[2023-03-27] MEDS: heparin, porcine 5000 units/ml vial SQ SCH ×3 (00:26→17:06)
--- NOTE | 2023-03-27 01:33 | NUR ---
DEFENSE ANALYST documentation: I have reviewed and agree with assessment performed and documented by MIGUEL A Johnson
[2023-03-27] MEDS: VANCOMYCIN LEVEL IV SCH (03:00)
--- NOTE | 2023-03-27 06:45 | NUR ---
Patient in room PCU 3018. I have received report from Slim DODD and had the opportunity to ask questions and assume patient care.
[2023-03-27 07:02] LABS: PHOSPHORUS 6.8 MG/DL (2.3-4.5)
[2023-03-27 07:03] LABS: CREATINE KINASE 2490 U/L (39-308)
[2023-03-27 07:44] LABS: HIV ANTIBODY 1&2 RAPID NON-REACTIVE (Neg)
[2023-03-27 08:13] LABS: ALANINE AMINOTRANSFERASE 218 U/L (12-78); ALBUMIN 2.5 G/DL (3.4-5.0); ALBUMIN/GLOBULIN RATIO 0.9 (1.1-1.5); ALKALINE PHOSPHATASE 48 IU/L (46-116); ANION GAP 12 (8-16); ASPARTATE AMINO TRANSFERASE 116 U/L (10-37); BILIRUBIN,TOTAL 0.4 MG/DL (0.1-1.0); BLOOD UREA NITROGEN 70 MG/DL (7-18); BUN/CREATININE RATIO 10.1 (10.0-20.0); CALCIUM 8.3 MG/DL (8.5-10.1); CHLORIDE 97 MMOL/L (99-107); CREATININE 6.92 MG/DL (0.60-1.10); GLUCOSE 102 MG/DL (70-104); POTASSIUM 3.9 MMOL/L (3.5-5.1); SODIUM 132 MMOL/L (135-145); TOTAL CARBON DIOXIDE 23.1 MMOL/L (24-32); TOTAL PROTEIN 5.4 G/DL (6.4-8.2); eGFR 9 ML/MIN
[2023-03-27] MEDS: acyclovir 200 MG capsule PO SCH (08:43)
[2023-03-27] MEDS: docusate sod 100mg capsule PO SCH ×2 (08:43→19:21)
[2023-03-27] MEDS: amLODIPine 5mg tablet PO SCH (08:44)
[2023-03-27] MEDS: labetalol 100mg tablet PO SCH ×2 (08:44→19:24)
--- NOTE | 2023-03-27 09:03 | NUR ---
Spoke with Dr Garza about patient's R hip pain and limited movement. gave order for a x-ray of the right hip.
--- NOTE | 2023-03-27 09:49 | NUR ---
Patient left unit to get a x-ray taken.
--- NOTE | 2023-03-27 09:58 | NUR ---
Patient returned to unit from X-ray.
--- NOTE | 2023-03-27 10:50 | NUR ---
Spoke with dialysis nurse about CMP results to determine if patient is going to get dialysis today.
[2023-03-27 12:22] LABS: HBSAG SCREEN Negative (Negative); HEP A AB, IGM Negative (Negative); HEPATITIS C VIRUS ANTIBODY Non Reactive (Non Reactive)
--- NOTE | 2023-03-27 12:54 | NUR ---
Patient called and told nursing that his penis is even bigger than it was earlier. Called resident resident states she is in the clinic and to page Dr. Martinez.
--- NOTE | 2023-03-27 12:58 | NUR ---
PAGER ID: [phone] MESSAGE: [id number] Leida Patient's Penis is swelling more than it was this morning. Patient is getting very anxious. Thank you Idalia DODD [phone]
--- NOTE | 2023-03-27 13:00 | NUR ---
Spoke with Dr Martinez on the phone about patient's penis swelling. Dr Martinez told nurse to contact the resident to look at it and that she is not a Urologist so she can't do anything for him. Nurse attempted to call the Resident they didn't answer. Resident Ochoa came to the floor and saw the patient. Dr. Ochoa states he ordered a urology consult.
--- NOTE | 2023-03-27 13:28 | NUR ---
Spoke with dialysis nurse Katherin about patient's dialysis. Patient will not be getting dialysis today they will monitor his labs for tomorrow.
--- NOTE | 2023-03-27 16:37 | NUR ---
Spoke with Dr Gentile about patient's condition. Dr Gentile Gave order for Lasix 40 mg IV x1, and a echo.
[2023-03-27] MEDS ORDERED: furosemide 40mg/4ml inj IV ONE (16:40)
--- NOTE | 2023-03-27 17:58 | NUR ---
Called pharmacy for 1730 scheduled medication.
--- NOTE | 2023-03-27 18:23 | NUR ---
Problems reprioritized. Patient report given, questions answered & plan of care reviewed with Slim DODD.
[2023-03-27] MEDS: sevelamer carbonate 800mg tablet PO SCH (18:43)
[2023-03-28] MEDS: heparin, porcine 5000 units/ml vial SQ SCH ×3 (00:07→18:22)
--- NOTE | 2023-03-28 01:48 | NUR ---
AGREE WITH MIGUEL A MATERNAL CHILD NURSE ASSESSMENT WITH WHAT I CHARTED.
[2023-03-28 02:00] VITALS: PULSE 80; RESP 23
--- NOTE | 2023-03-28 06:30 | NUR ---
Patient in room PCU 3018. I have received report from Slim DODD and had the opportunity to ask questions and assume patient care.
[2023-03-28 07:00] VITALS: BP 151/90; PULSE 80; RESP 16; TEMP 97.7; O2SAT 97
[2023-03-28 07:38] LABS: BASOPHILS % (AUTO) 0.4 % (0-1); EOSINOPHILS # (AUTO) 0.3 X10'3 (0-0.9); HEMATOCRIT 33.5 % (42.0-52.0); HEMOGLOBIN 11.7 g/dl (14.0-17.9); LYMPHOCYTES # (AUTO) 2.6 X10'3 (1.1-4.8); LYMPHOCYTES % (AUTO) 23.9 % (21-51); MEAN CORPUSCULAR HEMOGLOBIN 33.3 PG (27.0-31.0); MEAN CORPUSCULAR HGB CONC 34.8 g/dL (33.0-36.5); MEAN CORPUSCULAR VOLUME 95.7 FL (78-98); MEAN PLATELET VOLUME 7.6 FL (7.4-10.4); MONOCYTES # (AUTO) 1.4 X10'3 (0-0.9); MONOCYTES % (AUTO) 12.5 % (2-12); NEUTROPHILS # (AUTO) 6.7 X10'3 (1.8-7.7); NEUTROPHILS % (AUTO) 60.2 % (42-75); PLATELET COUNT 160 X10'3 (140-440); RED CELL DISTRIBUTION WIDTH 12.9 % (11.5-14.5); WHITE BLOOD COUNT 11.1 X10'3 (4.5-11.0)
[2023-03-28] MEDS: docusate sod 100mg capsule PO SCH ×2 (08:40→20:00)
[2023-03-28] MEDS: labetalol 100mg tablet PO SCH ×2 (08:41→21:35)
[2023-03-28] MEDS: sevelamer carbonate 800mg tablet PO SCH ×3 (08:41→18:21)
[2023-03-28] MEDS: amLODIPine 5mg tablet PO SCH (08:41)
[2023-03-28 08:48] LABS: ALBUMIN 2.7 G/DL (3.4-5.0); ANION GAP 13 (8-16); BLOOD UREA NITROGEN 76 MG/DL (7-18); BUN/CREATININE RATIO 10.7 (10.0-20.0); CALCIUM 8.4 MG/DL (8.5-10.1); CHLORIDE 98 MMOL/L (99-107); CREATININE 7.12 MG/DL (0.60-1.10); GLUCOSE 98 MG/DL (70-104); POTASSIUM 3.8 MMOL/L (3.5-5.1); SODIUM 134 MMOL/L (135-145); TOTAL CARBON DIOXIDE 22.8 MMOL/L (24-32); eGFR 9 ML/MIN
[2023-03-28 08:49] LABS: CREATINE KINASE 1726 U/L (39-308)
[2023-03-28] MEDS ORDERED: heparin 1,000unit/ml 10ml vial 10 ML IV ONE (10:00)
[2023-03-28] MEDS ORDERED: albumin (human) 25% 100ml IV 100 ML IV PRN (10:00)
[2023-03-28] MEDS ORDERED: heparin 1,000 units/ml 10ml inj IV ONE (10:00)
[2023-03-28] MEDS ORDERED: heparin 1,000 units/ml 10ml inj HE ONE ×2 (10:05)
--- NOTE | 2023-03-28 10:10 | NUR ---
Spoke with patient's father and gave him a update on his care.
[2023-03-28 11:00] VITALS: BP 141/89; PULSE 77; RESP 16; TEMP 98.2; O2SAT 98
--- NOTE | 2023-03-28 11:45 | NUR ---
Called report to Corine sarmiento [facility]. Addendum: 03/28/23 at 1228 by Idalia Lazaro LVN, LVN Incorrect patient
--- NOTE | 2023-03-28 12:37 | NUR ---
Paged SS for patient's request for Disability paperwork
--- NOTE | 2023-03-28 14:00 | NUR ---
Dialysis nurse in doing patient's HD
[2023-03-28 15:00] VITALS: BP 144/86; PULSE 76; RESP 16; TEMP 98.5; O2SAT 96
--- NOTE | 2023-03-28 18:19 | NUR ---
Problems reprioritized. Patient report given, questions answered & plan of care reviewed with Zeeshan FORMAN.
[2023-03-28 18:30] VITALS: BP 149/96; PULSE 78; RESP 20; TEMP 98.5; O2SAT 96
--- NOTE | 2023-03-28 18:49 | NUR ---
Patient in room PCU 3018. I have received report from Idalia and had the opportunity to ask questions and assume patient care.
[2023-03-28 21:42] VITALS: BP 160/89; PULSE 86; RESP 17; TEMP 99.2; O2SAT 98
[2023-03-29] VITALS (7 sets, daily range): BP systolic 128–149; BP diastolic 82–96; PULSE 65–90; RESP 15–20; TEMP 97.3–98.5; O2SAT 96–98
[2023-03-29] MEDS: heparin, porcine 5000 units/ml vial SQ SCH ×3 (00:11→16:33)
--- NOTE | 2023-03-29 06:32 | NUR ---
Problems reprioritized. Patient report given, questions answered & plan of care reviewed with Rosa.
[2023-03-29 07:14] LABS: BASOPHILS # (AUTO) 0.1 X10'3 (0-0.2); BASOPHILS % (AUTO) 0.7 % (0-1); EOSINOPHILS # (AUTO) 0.3 X10'3 (0-0.9); EOSINOPHILS % (AUTO) 2.5 % (0-6); HEMATOCRIT 33.6 % (42.0-52.0); HEMOGLOBIN 11.6 g/dl (14.0-17.9); LYMPHOCYTES # (AUTO) 2.8 X10'3 (1.1-4.8); LYMPHOCYTES % (AUTO) 27.2 % (21-51); MEAN CORPUSCULAR HEMOGLOBIN 33.3 PG (27.0-31.0); MEAN CORPUSCULAR HGB CONC 34.6 g/dL (33.0-36.5); MEAN CORPUSCULAR VOLUME 96.3 FL (78-98); MEAN PLATELET VOLUME 7.6 FL (7.4-10.4); MONOCYTES # (AUTO) 1.3 X10'3 (0-0.9); MONOCYTES % (AUTO) 13.1 % (2-12); NEUTROPHILS # (AUTO) 5.7 X10'3 (1.8-7.7); NEUTROPHILS % (AUTO) 56.5 % (42-75); PLATELET COUNT 168 X10'3 (140-440); RED BLOOD COUNT 3.49 X10'6 (4.70-6.10); RED CELL DISTRIBUTION WIDTH 13.1 % (11.5-14.5); WHITE BLOOD COUNT 10.2 X10'3 (4.5-11.0)
[2023-03-29 07:48] LABS: ALBUMIN 2.8 G/DL (3.4-5.0); ANION GAP 13 (8-16); BLOOD UREA NITROGEN 47 MG/DL (7-18); BUN/CREATININE RATIO 10.2 (10.0-20.0); CALCIUM 8.8 MG/DL (8.5-10.1); CHLORIDE 100 MMOL/L (99-107); CREATINE KINASE 937 U/L (39-308); CREATININE 4.63 MG/DL (0.60-1.10); GLUCOSE 99 MG/DL (70-104); MAGNESIUM 1.9 MG/DL (1.5-2.4); PHOSPHORUS 6.2 MG/DL (2.3-4.5); POTASSIUM 3.9 MMOL/L (3.5-5.1); SODIUM 138 MMOL/L (135-145); TOTAL CARBON DIOXIDE 24.9 MMOL/L (24-32); eGFR 15 ML/MIN
[2023-03-29 08:35] LABS: ALANINE AMINOTRANSFERASE 198 U/L (12-78); ASPARTATE AMINO TRANSFERASE 82 U/L (10-37)
[2023-03-29] MEDS: labetalol 100mg tablet PO SCH ×2 (08:51→20:54)
[2023-03-29] MEDS: amLODIPine 5mg tablet PO SCH (08:56)
[2023-03-29] MEDS: docusate sod 100mg capsule PO SCH ×2 (08:57→20:00)
[2023-03-29] MEDS: sevelamer carbonate 800mg tablet PO SCH ×3 (08:58→16:34)
--- NOTE | 2023-03-29 17:12 | NUR ---
patient resting in bed. All medications tolerated. No acute changes this shift. Will report to fast food shift lead. All safety measures in place and call light in reach.
--- NOTE | 2023-03-29 18:20 | NUR ---
Patient in room PCU 3018. I have received report from Rosa DODD and had the opportunity to ask questions and assume patient care.
--- NOTE | 2023-03-29 19:21 | NUR ---
Resident advised order was entered for fluid restrictions. Advised pt he is on a 1.5L fluid restriction. Pt verbalized he understood.
--- NOTE | 2023-03-29 20:10 | NUR ---
Patient in room U 3018. I have received report from Randi FORMAN and had the opportunity to ask questions and assume patient care. Addendum: 03/29/23 at 5697 by Farzaneh Lazaro LVN, LVN documented under incorrect pt-disregard note
--- NOTE | 2023-03-29 20:30 | NUR ---
REFRACTORY BRICKLAYER documentation: I have reviewed and agree with all interventions, assessments performed and documented by Farzaneh Pan LVN.
[2023-03-30] VITALS (7 sets, daily range): BP systolic 100–162; BP diastolic 57–86; PULSE 79–95; RESP 11–18; TEMP 97.1–98.8; O2SAT 90–98
[2023-03-30] MEDS: heparin, porcine 5000 units/ml vial SQ SCH ×4 (00:23→23:29)
--- NOTE | 2023-03-30 06:17 | NUR ---
Problems reprioritized. Patient report given, questions answered & plan of care reviewed with Rosa DODD.
[2023-03-30] MEDS: labetalol 100mg tablet PO SCH ×2 (07:18→20:33)
[2023-03-30] MEDS: docusate sod 100mg capsule PO SCH ×2 (07:18→20:00)
[2023-03-30] MEDS: sevelamer carbonate 800mg tablet PO SCH ×3 (07:20→17:33)
[2023-03-30] MEDS: amLODIPine 5mg tablet PO SCH (07:20)
[2023-03-30 07:52] LABS: ALBUMIN 3.1 G/DL (3.4-5.0); ANION GAP 10 (8-16); BLOOD UREA NITROGEN 57 MG/DL (7-18); BUN/CREATININE RATIO 11.3 (10.0-20.0); CALCIUM 8.9 MG/DL (8.5-10.1); CHLORIDE 102 MMOL/L (99-107); CREATININE 5.05 MG/DL (0.60-1.10); GLUCOSE 97 MG/DL (70-104); POTASSIUM 4.1 MMOL/L (3.5-5.1); SODIUM 139 MMOL/L (135-145); TOTAL CARBON DIOXIDE 26.8 MMOL/L (24-32); eGFR 14 ML/MIN
[2023-03-30] MEDS ORDERED: heparin 1,000unit/ml 10ml vial 10 ML IV ONE (08:05)
[2023-03-30] MEDS ORDERED: heparin 1,000 units/ml 10ml inj IV ONE (08:05)
[2023-03-30] MEDS ORDERED: albumin (human) 25% 100ml IV 100 ML IV PRN (08:05)
[2023-03-30] MEDS ORDERED: heparin 1,000 units/ml 10ml inj HE ONE ×2 (08:10)
[2023-03-30 08:18] LABS: BASOPHILS # (AUTO) 0.1 X10'3 (0-0.2); BASOPHILS % (AUTO) 0.7 % (0-1); EOSINOPHILS # (AUTO) 0.2 X10'3 (0-0.9); EOSINOPHILS % (AUTO) 2.7 % (0-6); HEMATOCRIT 32.4 % (42.0-52.0); HEMOGLOBIN 11.2 g/dl (14.0-17.9); LYMPHOCYTES # (AUTO) 2.2 X10'3 (1.1-4.8); LYMPHOCYTES % (AUTO) 25.3 % (21-51); MEAN CORPUSCULAR HEMOGLOBIN 33.4 PG (27.0-31.0); MEAN CORPUSCULAR HGB CONC 34.6 g/dL (33.0-36.5); MEAN CORPUSCULAR VOLUME 96.6 FL (78-98); MONOCYTES # (AUTO) 1.2 X10'3 (0-0.9); MONOCYTES % (AUTO) 13.5 % (2-12); NEUTROPHILS % (AUTO) 57.8 % (42-75); PLATELET COUNT 183 X10'3 (140-440); RED BLOOD COUNT 3.36 X10'6 (4.70-6.10); RED CELL DISTRIBUTION WIDTH 13.3 % (11.5-14.5); WHITE BLOOD COUNT 8.6 X10'3 (4.5-11.0)
--- NOTE | 2023-03-30 15:15 | NUR ---
Nutrition consult: Per vice president talent management pt inquiring about the renal diet and pt dislikes the food so family is bringing food in. Pt seen at bedside with family present, provided with written and verbal nutrition therapy tips for dialysis and a list of potassium, phosphorus, and sodium in foods. All of patient's and family's questions were answered at this time. Pt states he is tired of the food he is getting therefore having family bring food in. Pt provided with alternative renal diet menu to inform of additional food options. Pt currently documented with mostly 100% PO intake on renal diet. Pt now receiving a phosphorus binder with meals. Pt s/p HD today with 3 L fluid removed per EMR. LBM 03/28 per EMR, receiving routine bowel care. Pt provided with RD contact information and encouraged to reach out if needed. Will continue to follow. Recommendations: 1. Continue renal diet with 1.5 L fluid restriction per MD; allow outside food as appropriate to optimize PO intake 2. Nepro once daily WL to assist meeting needs 3. Continue routine phos binder per physician discretion 4. Routine bowel care 5. Scaled weights with HD Addendum: 03/30/23 at [address] Amended: Links added.
[2023-03-30 15:31] LABS: PHOSPHORUS 6.4 MG/DL (2.3-4.5)
--- NOTE | 2023-03-30 18:30 | NUR ---
Patient in room PCU 3018. I have received report from Rosa DODD and had the opportunity to ask questions and assume patient care.
[2023-03-31] VITALS (7 sets, daily range): BP systolic 125–136; BP diastolic 72–88; PULSE 69–85; RESP 9–19; TEMP 97.2–98.8; O2SAT 97–100
--- NOTE | 2023-03-31 06:21 | NUR ---
Problems reprioritized. Patient report given, questions answered & plan of care reviewed with Zoey FORMAN.
[2023-03-31 06:33] LABS: BASOPHILS # (AUTO) 0.1 X10'3 (0-0.2); BASOPHILS % (AUTO) 0.6 % (0-1); EOSINOPHILS # (AUTO) 0.3 X10'3 (0-0.9); EOSINOPHILS % (AUTO) 2.7 % (0-6); HEMATOCRIT 31.8 % (42.0-52.0); HEMOGLOBIN 11.1 g/dl (14.0-17.9); LYMPHOCYTES # (AUTO) 2.4 X10'3 (1.1-4.8); LYMPHOCYTES % (AUTO) 25.8 % (21-51); MEAN CORPUSCULAR HEMOGLOBIN 34.1 PG (27.0-31.0); MEAN CORPUSCULAR VOLUME 97.3 FL (78-98); MEAN PLATELET VOLUME 7.4 FL (7.4-10.4); MONOCYTES # (AUTO) 1.2 X10'3 (0-0.9); MONOCYTES % (AUTO) 12.8 % (2-12); NEUTROPHILS # (AUTO) 5.4 X10'3 (1.8-7.7); NEUTROPHILS % (AUTO) 58.1 % (42-75); PLATELET COUNT 211 X10'3 (140-440); RED BLOOD COUNT 3.27 X10'6 (4.70-6.10); RED CELL DISTRIBUTION WIDTH 13.1 % (11.5-14.5); WHITE BLOOD COUNT 9.3 X10'3 (4.5-11.0)
[2023-03-31 06:46] LABS: ALBUMIN 3.2 G/DL (3.4-5.0); ANION GAP 8 (8-16); BLOOD UREA NITROGEN 42 MG/DL (7-18); BUN/CREATININE RATIO 10.9 (10.0-20.0); CALCIUM 8.8 MG/DL (8.5-10.1); CHLORIDE 103 MMOL/L (99-107); CREATININE 3.87 MG/DL (0.60-1.10); GLUCOSE 98 MG/DL (70-104); MAGNESIUM 1.8 MG/DL (1.5-2.4); PHOSPHORUS 5.9 MG/DL (2.3-4.5); POTASSIUM 4.3 MMOL/L (3.5-5.1); SODIUM 140 MMOL/L (135-145); TOTAL CARBON DIOXIDE 28.8 MMOL/L (24-32); eGFR 19 ML/MIN
--- NOTE | 2023-03-31 06:52 | NUR ---
Patient in room PCU 3018. I have received report from Salina DODD and had the opportunity to ask questions and assume patient care.
--- NOTE | 2023-03-31 07:03 | NUR ---
This RN has reviewed and agrees w/the DIGITAL ADVISOR's physical assessment of this patient.
[2023-03-31] MEDS: docusate sod 100mg capsule PO SCH ×2 (08:00→20:00)
[2023-03-31] MEDS: labetalol 100mg tablet PO SCH ×2 (08:00→19:35)
[2023-03-31] MEDS: sevelamer carbonate 800mg tablet PO SCH ×3 (08:01→17:48)
[2023-03-31] MEDS: amLODIPine 5mg tablet PO SCH (08:01)
[2023-03-31] MEDS: heparin, porcine 5000 units/ml vial SQ SCH ×2 (08:02→16:00)
[2023-03-31 14:35] LABS: CLARITY,URINE SLIGHTLY CLOUDY (Clear); COLOR,URINE YELLOW (Yellow); GLUCOSE, URINE NEGATIVE (Neg); KETONES,URINE NEGATIVE (Neg); LEUKOCYTE ESTERASE ,URINE NEGATIVE (Neg); NITRITES, URINE NEGATIVE (Neg); OCCULT BLOOD,URINE SMALL (Neg); PH,URINE 5.5 (4.8-8.0); PROTEIN,URINE NEGATIVE (Neg); UROBILINOGEN,URINE 0.2 E.U/dL (0.2-1.0)
[2023-03-31 14:48] LABS: UA COLLECTION TYPE VOIDED
[2023-03-31 14:55] LABS: TOTAL PROTEIN,URINE RANDOM 13.4 MG/DL
[2023-03-31 14:56] LABS: BACTERIA,URINE FEW /HPF (Neg); HYALINE CASTS 0-3 /LPF (NEGATIVE); RBC,URINE 0-2 /HPF (0-2); SQUAMOUS EPITHELIAL CELL,UR FEW /LPF (FEW)
[2023-03-31 14:57] LABS: MUCUS STRANDS FEW /LPF (Neg); TRANSITIONAL EPI CELLS,URINE FEW /HPF
[2023-03-31 15:17] LABS: UA EOSINOPHILS RARE EOS /HPF
--- NOTE | 2023-03-31 16:08 | NUR ---
patient up and about in room. No longer on fluid restriction per shirin RN from Dr Auguste. VSS.
--- NOTE | 2023-03-31 18:15 | NUR ---
Patient in room PCU 3018. I have received report from britney FORMAN and had the opportunity to ask questions and assume patient care.
--- NOTE | 2023-03-31 18:15 | NUR ---
Patient in room PCU 3018. I have received report from britney root and had the opportunity to ask questions and assume patient care.
--- NOTE | 2023-03-31 18:20 | NUR ---
Problems reprioritized. Patient report given, questions answered & plan of care reviewed with Dawn FORMAN. Addendum: 03/31/23 at 1839 by Zoey Morrison RN Problems reprioritized. Patient report given, questions answered & plan of care reviewed with Salina DODD.
[2023-04-01] VITALS (7 sets, daily range): BP systolic 125–153; BP diastolic 71–93; PULSE 75–99; RESP 17–21; TEMP 98.2–99.1; O2SAT 95–99
[2023-04-01] MEDS: heparin, porcine 5000 units/ml vial SQ SCH ×3 (00:20→19:47)
--- NOTE | 2023-04-01 03:23 | NUR ---
CLINICAL COURIER documentation: I have reviewed and agree with assessment performed and documented by RG Salinas
--- NOTE | 2023-04-01 06:15 | NUR ---
Problems reprioritized. Patient report given, questions answered & plan of care reviewed with britney root.
--- NOTE | 2023-04-01 06:26 | NUR ---
Patient in room PCU 3018. I have received report from Salina DODD and had the opportunity to ask questions and assume patient care.
[2023-04-01 07:44] LABS: BASOPHILS # (AUTO) 0.1 X10'3 (0-0.2); BASOPHILS % (AUTO) 0.9 % (0-1); EOSINOPHILS # (AUTO) 0.2 X10'3 (0-0.9); EOSINOPHILS % (AUTO) 2.7 % (0-6); HEMATOCRIT 32.7 % (42.0-52.0); HEMOGLOBIN 11.1 g/dl (14.0-17.9); LYMPHOCYTES # (AUTO) 2.3 X10'3 (1.1-4.8); LYMPHOCYTES % (AUTO) 28.8 % (21-51); MEAN CORPUSCULAR HEMOGLOBIN 33.3 PG (27.0-31.0); MEAN CORPUSCULAR HGB CONC 34.1 g/dL (33.0-36.5); MEAN CORPUSCULAR VOLUME 97.6 FL (78-98); MEAN PLATELET VOLUME 7.6 FL (7.4-10.4); MONOCYTES # (AUTO) 1.1 X10'3 (0-0.9); MONOCYTES % (AUTO) 13.9 % (2-12); NEUTROPHILS # (AUTO) 4.2 X10'3 (1.8-7.7); NEUTROPHILS % (AUTO) 53.7 % (42-75); PLATELET COUNT 233 X10'3 (140-440); RED BLOOD COUNT 3.35 X10'6 (4.70-6.10); RED CELL DISTRIBUTION WIDTH 13.2 % (11.5-14.5); WHITE BLOOD COUNT 7.8 X10'3 (4.5-11.0)
[2023-04-01 08:00] LABS: ALBUMIN 3.4 G/DL (3.4-5.0); ANION GAP 11 (8-16); BLOOD UREA NITROGEN 46 MG/DL (7-18); BUN/CREATININE RATIO 12.6 (10.0-20.0); CALCIUM 9.3 MG/DL (8.5-10.1); CHLORIDE 102 MMOL/L (99-107); CREATININE 3.66 MG/DL (0.60-1.10); GLUCOSE 93 MG/DL (70-104); MAGNESIUM 1.8 MG/DL (1.5-2.4); PHOSPHORUS 5.8 MG/DL (2.3-4.5); POTASSIUM 4.1 MMOL/L (3.5-5.1); SODIUM 139 MMOL/L (135-145); TOTAL CARBON DIOXIDE 25.8 MMOL/L (24-32); eGFR 20 ML/MIN
[2023-04-01] MEDS: docusate sod 100mg capsule PO SCH ×2 (08:00→19:49)
[2023-04-01] MEDS: labetalol 100mg tablet PO SCH (08:56)
[2023-04-01] MEDS: sevelamer carbonate 800mg tablet PO SCH ×3 (08:56→17:51)
[2023-04-01] MEDS: amLODIPine 5mg tablet PO SCH (08:56)
--- NOTE | 2023-04-01 18:33 | NUR ---
patient up and about in room . Appeared very upset talking on the phone, but more relaxed in afternoon .Had to educate again with regards following a renal diet to help with kidney function as mother bringing in food for patient. patient stated he will be compliant. Seen by Dr duong resident and Dr Rooney, meds adjusted. Report given to Landon FORMAN
[2023-04-02 06:00] VITALS: BP 148/73; PULSE 84; RESP 18; TEMP 99.3; O2SAT 97
[2023-04-02 06:11] LABS: BASOPHILS % (AUTO) 0.6 % (0-1); EOSINOPHILS # (AUTO) 0.2 X10'3 (0-0.9); EOSINOPHILS % (AUTO) 2.8 % (0-6); HEMATOCRIT 30.3 % (42.0-52.0); HEMOGLOBIN 10.6 g/dl (14.0-17.9); LYMPHOCYTES # (AUTO) 2.4 X10'3 (1.1-4.8); LYMPHOCYTES % (AUTO) 27.9 % (21-51); MEAN CORPUSCULAR HEMOGLOBIN 33.8 PG (27.0-31.0); MEAN CORPUSCULAR VOLUME 96.5 FL (78-98); MEAN PLATELET VOLUME 7.4 FL (7.4-10.4); MONOCYTES # (AUTO) 1.3 X10'3 (0-0.9); MONOCYTES % (AUTO) 15.1 % (2-12); NEUTROPHILS # (AUTO) 4.5 X10'3 (1.8-7.7); NEUTROPHILS % (AUTO) 53.6 % (42-75); PLATELET COUNT 240 X10'3 (140-440); RED BLOOD COUNT 3.14 X10'6 (4.70-6.10); WHITE BLOOD COUNT 8.5 X10'3 (4.5-11.0)
[2023-04-02 06:23] LABS: ALANINE AMINOTRANSFERASE 104 U/L (12-78); ALBUMIN 3.5 G/DL (3.4-5.0); ALBUMIN/GLOBULIN RATIO 1.1 (1.1-1.5); ALKALINE PHOSPHATASE 62 IU/L (46-116); ANION GAP 13 (8-16); ASPARTATE AMINO TRANSFERASE 32 U/L (10-37); BILIRUBIN,TOTAL 0.4 MG/DL (0.1-1.0); BLOOD UREA NITROGEN 66 MG/DL (7-18); BUN/CREATININE RATIO 19.6 (10.0-20.0); CALCIUM 9.1 MG/DL (8.5-10.1); CHLORIDE 101 MMOL/L (99-107); CREATININE 3.36 MG/DL (0.60-1.10); GLUCOSE 97 MG/DL (70-104); MAGNESIUM 1.7 MG/DL (1.5-2.4); PHOSPHORUS 6.1 MG/DL (2.3-4.5); POTASSIUM 4.3 MMOL/L (3.5-5.1); SODIUM 139 MMOL/L (135-145); TOTAL CARBON DIOXIDE 25.4 MMOL/L (24-32); TOTAL PROTEIN 6.7 G/DL (6.4-8.2); eGFR 22 ML/MIN
--- NOTE | 2023-04-02 06:38 | NUR ---
Problems reprioritized. Patient report given, questions answered & plan of care reviewed with DIANA. Addendum: 04/02/23 at 0638 by Gonzalo Kaufman RN Amended: Links added.
--- NOTE | 2023-04-02 06:46 | NUR ---
Patient in room PCU 3018. I have received report from DICKSON Navarrete and had the opportunity to ask questions and assume patient care.
[2023-04-02 08:00] VITALS: RESP 18; O2SAT 97
[2023-04-02] MEDS: docusate sod 100mg capsule PO SCH ×2 (08:00→20:00)
[2023-04-02] MEDS: amLODIPine 5mg tablet PO SCH (08:13)
[2023-04-02] MEDS: heparin, porcine 5000 units/ml vial SQ SCH ×2 (08:14→20:00)
[2023-04-02] MEDS: sevelamer carbonate 800mg tablet PO SCH ×3 (08:14→18:35)
[2023-04-02 11:00] VITALS: BP 135/87; PULSE 76; RESP 16; TEMP 97.4; O2SAT 99
[2023-04-02 15:00] VITALS: BP 158/111; PULSE 89; RESP 14; TEMP 99.4; O2SAT 99
--- NOTE | 2023-04-02 18:22 | NUR ---
Problems reprioritized. Patient report given, questions answered & plan of care reviewed with DICKSON Navarrete.
[2023-04-02 18:30] VITALS: BP 137/102; PULSE 87; RESP 16; TEMP 98.6; O2SAT 100
[2023-04-02] MEDS: labetalol 100mg tablet PO SCH (20:22)
[2023-04-02 22:00] VITALS: BP 148/89; PULSE 80; RESP 16; TEMP 98.2; O2SAT 98
[2023-04-03 02:00] VITALS: BP 137/74; PULSE 77; RESP 16; TEMP 98.6; O2SAT 97
--- NOTE | 2023-04-03 06:29 | NUR ---
Problems reprioritized. Patient report given, questions answered & plan of care reviewed with ROLANDO. Addendum: 04/03/23 at 4729 by Gonzalo Kaufman RN Amended: Links added.
--- NOTE | 2023-04-03 06:30 | NUR ---
Patient in room PCU 3018. I have received report from GRACY FORMAN and had the opportunity to ask questions and assume patient care.
[2023-04-03 06:55] LABS: BASOPHILS # (AUTO) 0.1 X10'3 (0-0.2); EOSINOPHILS # (AUTO) 0.2 X10'3 (0-0.9); HEMATOCRIT 32.4 % (42.0-52.0); HEMOGLOBIN 11.4 g/dl (14.0-17.9); LYMPHOCYTES % (AUTO) 32.4 % (21-51); MEAN CORPUSCULAR HEMOGLOBIN 33.8 PG (27.0-31.0); MEAN CORPUSCULAR HGB CONC 35.2 g/dL (33.0-36.5); MEAN CORPUSCULAR VOLUME 96.1 FL (78-98); MEAN PLATELET VOLUME 7.2 FL (7.4-10.4); MONOCYTES # (AUTO) 1.3 X10'3 (0-0.9); MONOCYTES % (AUTO) 20.5 % (2-12); NEUTROPHILS # (AUTO) 2.6 X10'3 (1.8-7.7); NEUTROPHILS % (AUTO) 43.1 % (42-75); PLATELET COUNT 242 X10'3 (140-440); RED BLOOD COUNT 3.37 X10'6 (4.70-6.10); RED CELL DISTRIBUTION WIDTH 12.9 % (11.5-14.5); WHITE BLOOD COUNT 6.1 X10'3 (4.5-11.0)
[2023-04-03 07:15] LABS: ALANINE AMINOTRANSFERASE 95 U/L (12-78); ALBUMIN 3.8 G/DL (3.4-5.0); ALBUMIN/GLOBULIN RATIO 1.2 (1.1-1.5); ALKALINE PHOSPHATASE 66 IU/L (46-116); ANION GAP 12 (8-16); ASPARTATE AMINO TRANSFERASE 34 U/L (10-37); BILIRUBIN,TOTAL 0.6 MG/DL (0.1-1.0); BLOOD UREA NITROGEN 56 MG/DL (7-18); BUN/CREATININE RATIO 18.6 (10.0-20.0); CALCIUM 9.5 MG/DL (8.5-10.1); CHLORIDE 102 MMOL/L (99-107); CREATININE 3.01 MG/DL (0.60-1.10); GLUCOSE 98 MG/DL (70-104); MAGNESIUM 1.9 MG/DL (1.5-2.4); PHOSPHORUS 6.1 MG/DL (2.3-4.5); POTASSIUM 4.2 MMOL/L (3.5-5.1); SODIUM 140 MMOL/L (135-145); TOTAL CARBON DIOXIDE 26.4 MMOL/L (24-32); TOTAL PROTEIN 7.1 G/DL (6.4-8.2); eGFR 25 ML/MIN
[2023-04-03 08:00] VITALS: BP 136/95; PULSE 88; RESP 16; TEMP 99.4; O2SAT 96
[2023-04-03] MEDS: docusate sod 100mg capsule PO SCH ×2 (08:53→19:42)
[2023-04-03] MEDS: heparin, porcine 5000 units/ml vial SQ SCH ×2 (08:53→19:42)
[2023-04-03] MEDS: sevelamer carbonate 800mg tablet PO SCH ×3 (08:53→17:37)
[2023-04-03] MEDS: labetalol 100mg tablet PO SCH ×2 (08:54→19:40)
[2023-04-03] MEDS: amLODIPine 5mg tablet PO SCH (08:54)
[2023-04-03 11:00] VITALS: BP 149/99; PULSE 79; RESP 19; TEMP 97.3; O2SAT 96
--- NOTE | 2023-04-03 11:09 | NUR ---
Reassessment: Per EMR pt has not received HD since 03/30 and pt possibly not to receive any more dialysis per stem threshing machine operator note. Estimated nutrient needs have been adjusted accordingly. Serum Phos remains elevated though pt receiving a routine Phos binder. Pt continues eating well on renal diet, documented with 100% PO intake meeting estimated nutrient needs. LBM 04/02 per EMR. No nutrition intervention implemented at this time. Will continue to follow and make recommendations as appropriate. Recommendations: 1. Continue renal diet; allow outside food as appropriate to optimize PO intake 2. Nepro once daily WL to assist meeting needs, pending physician approval in EMR; may not be indicated as pt no longer receiving HD and with 100% PO intake of meals/outside food 3. Continue routine phos binder per physician discretion 4. Routine bowel care 5. Weekly scaled weights Addendum: 04/03/23 at [address] Amended: Links added.
[2023-04-03 15:30] VITALS: BP 158/99; PULSE 96; RESP 16; TEMP 97.3; O2SAT 97
--- NOTE | 2023-04-03 17:19 | NUR ---
AGREE WITH PATENT COUNSEL AM ASSESSMENT
--- NOTE | 2023-04-03 17:24 | NUR ---
PATIENT WAITING ON JUSTICE PROFESSOR TO OKAY REMOVAL OF PORT IN RIGHT CHEST AND MD WILL OKAY SAFE DISCHARGE. ALL NEEDS MET BY STAFF.NO ACUTE CHANGES THIS SHIFT. ALL SAFETY MEASURES IN PLACE AND CALL LIGHT IN REACH.
[2023-04-03 18:00] VITALS: BP 165/98; PULSE 94; RESP 20; TEMP 97.9; O2SAT 100
[2023-04-03 20:00] VITALS: RESP 20; O2SAT 100
[2023-04-04] VITALS (7 sets, daily range): BP systolic 131–151; BP diastolic 76–95; PULSE 70–90; RESP 16–18; TEMP 97.6–99.8; O2SAT 96–100
--- NOTE | 2023-04-04 01:49 | NUR ---
I AGREE WITH DRILLING INSPECTOR ASSESSMENT
[2023-04-04 07:26] LABS: ALANINE AMINOTRANSFERASE 77 U/L (12-78); ALBUMIN 3.8 G/DL (3.4-5.0); ALBUMIN/GLOBULIN RATIO 1.1 (1.1-1.5); ALKALINE PHOSPHATASE 66 IU/L (46-116); ANION GAP 10 (8-16); ASPARTATE AMINO TRANSFERASE 28 U/L (10-37); BILIRUBIN,TOTAL 0.7 MG/DL (0.1-1.0); BLOOD UREA NITROGEN 49 MG/DL (7-18); BUN/CREATININE RATIO 18.4 (10.0-20.0); CALCIUM 9.5 MG/DL (8.5-10.1); CHLORIDE 102 MMOL/L (99-107); CREATININE 2.66 MG/DL (0.60-1.10); GLUCOSE 99 MG/DL (70-104); PHOSPHORUS 5.7 MG/DL (2.3-4.5); SODIUM 138 MMOL/L (135-145); TOTAL CARBON DIOXIDE 26.3 MMOL/L (24-32); TOTAL PROTEIN 7.3 G/DL (6.4-8.2); eGFR 29 ML/MIN
[2023-04-04] MEDS: heparin, porcine 5000 units/ml vial SQ SCH ×2 (08:00→19:44)
[2023-04-04] MEDS: docusate sod 100mg capsule PO SCH ×2 (08:26→19:44)
[2023-04-04] MEDS: sevelamer carbonate 800mg tablet PO SCH ×3 (08:26→17:10)
[2023-04-04] MEDS: amLODIPine 5mg tablet PO SCH (08:27)
[2023-04-04] MEDS: labetalol 100mg tablet PO SCH ×2 (08:27→19:42)
--- NOTE | 2023-04-04 20:10 | NUR ---
SENIOR STORAGE ADMINISTRATOR documentation: I have reviewed and agree with all interventions, assessments performed and documented by Jaimie Koroma LVN .
[2023-04-05 02:00] VITALS: BP 129/74; PULSE 70; RESP 17; TEMP 97.7; O2SAT 98
[2023-04-05 08:00] VITALS: RESP 16; O2SAT 96
[2023-04-05] MEDS: heparin, porcine 5000 units/ml vial SQ SCH (08:00)
[2023-04-05] MEDS: docusate sod 100mg capsule PO SCH (08:00)
[2023-04-05 08:15] LABS: ALANINE AMINOTRANSFERASE 67 U/L (12-78); ALBUMIN/GLOBULIN RATIO 1.1 (1.1-1.5); ALKALINE PHOSPHATASE 67 IU/L (46-116); ANION GAP 11 (8-16); ASPARTATE AMINO TRANSFERASE 25 U/L (10-37); BILIRUBIN,TOTAL 0.6 MG/DL (0.1-1.0); BLOOD UREA NITROGEN 51 MG/DL (7-18); BUN/CREATININE RATIO 21.6 (10.0-20.0); CALCIUM 9.5 MG/DL (8.5-10.1); CHLORIDE 102 MMOL/L (99-107); CREATININE 2.36 MG/DL (0.60-1.10); GLUCOSE 92 MG/DL (70-104); PHOSPHORUS 5.3 MG/DL (2.3-4.5); POTASSIUM 3.9 MMOL/L (3.5-5.1); SODIUM 139 MMOL/L (135-145); TOTAL CARBON DIOXIDE 26.1 MMOL/L (24-32); TOTAL PROTEIN 7.5 G/DL (6.4-8.2); eGFR 33 ML/MIN
[2023-04-05] MEDS: sevelamer carbonate 800mg tablet PO SCH ×2 (09:32→12:30)
[2023-04-05] MEDS: labetalol 100mg tablet PO SCH (09:32)
[2023-04-05] MEDS: amLODIPine 5mg tablet PO SCH (09:34)
[2023-04-05 12:41] VITALS: BP 140/82; PULSE 85; RESP 18; TEMP 97.8; O2SAT 96
== END 2023-04-05 17:24 | disposition home or self-care (01) | DRG 579 ==
LOC: ER 10:22 → ED HOLD 16:54 → PCU 3S 19:20
PROVIDERS: ADMIT Family Medicine; ATTEND Family Medicine
PROC: 0JH63XZ Insertion of Tunneled Vascular Access Device into Chest Subcutaneous Tissue and Fascia, Percutaneous Approach (ICD-10-PCS; principal; 2023-03-23)
PROC: 02HV33Z Insertion of Infusion Device into Superior Vena Cava, Percutaneous Approach (ICD-10-PCS; 2023-03-23)
PROC: B548ZZA Ultrasonography of Superior Vena Cava, Guidance (ICD-10-PCS; 2023-03-23)
PROC: B5181ZA Fluoroscopy of Superior Vena Cava using Low Osmolar Contrast, Guidance (ICD-10-PCS; 2023-03-23)
PROC: 5A1D70Z Performance of Urinary Filtration, Intermittent, Less than 6 Hours Per Day (ICD-10-PCS; 2023-03-23)
PROC: 5A1D70Z Performance of Urinary Filtration, Intermittent, Less than 6 Hours Per Day (ICD-10-PCS; 2023-03-24)
PROC: 5A1D70Z Performance of Urinary Filtration, Intermittent, Less than 6 Hours Per Day (ICD-10-PCS; 2023-03-25)
PROC: 5A1D70Z Performance of Urinary Filtration, Intermittent, Less than 6 Hours Per Day (ICD-10-PCS; 2023-03-28)
PROC: 5A1D70Z Performance of Urinary Filtration, Intermittent, Less than 6 Hours Per Day (ICD-10-PCS; 2023-03-30)
DX: L03.113 Cellulitis of right upper limb (principal); N17.0 Acute kidney failure with tubular necrosis; M62.82 Rhabdomyolysis; E87.1 Hypo-osmolality and hyponatremia; M60.821 Other myositis, right upper arm; E83.39 Other disorders of phosphorus metabolism; E83.41 Hypermagnesemia; N48.89 Other specified disorders of penis; F19.10 Other psychoactive substance abuse, uncomplicated; I12.9 Hypertensive chronic kidney disease with stage 1 through stage 4 chronic kidney disease, or unspecified chronic kidney disease; N18.9 Chronic kidney disease, unspecified; R20.0 Anesthesia of skin; R74.01 Elevation of levels of liver transaminase levels; Z87.891 Personal history of nicotine dependence; Z79.899 Other long term (current) drug therapy
CPT/HCPCS: 36415; 36558; 36589; 71045; 73090; 73200; 73218; 73502; 76770; 76937; 77001; 80048; 80053; 80074; 80202; 80305; 81001; 82550; 82570; 83605; 83735; 83930; 83935; 84100; 84145; 84156; 84300; 84450; 84460; 85025; 85651; 86703; 87040; 87081; 87088; 87207; 93005; 93306; 93971; 97161; 99285; A4620; A5200; A6258; A6446; A6449; A9270; C1750; C1769; C1894; G0378; J0360; J0696; J1200; J1644; J1940; J2270; J2405; J3010; J3370; J3490; J7030; J7040; J7050; J7070

== ENCOUNTER 2023-04-17 17:29 | Emergency (ER) | payer MEDICAID, OTHER ==
[~2023-04-17] VITALS: Ht 180.3 cm; Wt 86.4 kg
[2023-04-17 17:52] VITALS: BP 142/96; PULSE 74; RESP 20; TEMP 97.9; O2SAT 98
[2023-04-17 18:42] LABS: BASOPHILS % (AUTO) 0.6 % (0-1); EOSINOPHILS # (AUTO) 0.1 X10'3 (0-0.9); EOSINOPHILS % (AUTO) 2.2 % (0-6); HEMATOCRIT 31.5 % (42.0-52.0); HEMOGLOBIN 10.7 g/dl (14.0-17.9); LYMPHOCYTES # (AUTO) 3.6 X10'3 (1.1-4.8); LYMPHOCYTES % (AUTO) 52.1 % (21-51); MEAN CORPUSCULAR HEMOGLOBIN 32.1 PG (27.0-31.0); MEAN CORPUSCULAR HGB CONC 33.9 g/dL (33.0-36.5); MEAN CORPUSCULAR VOLUME 94.7 FL (78-98); MEAN PLATELET VOLUME 7.6 FL (7.4-10.4); MONOCYTES # (AUTO) 0.8 X10'3 (0-0.9); MONOCYTES % (AUTO) 11.8 % (2-12); NEUTROPHILS # (AUTO) 2.3 X10'3 (1.8-7.7); NEUTROPHILS % (AUTO) 33.3 % (42-75); PLATELET COUNT 372 X10'3 (140-440); RED BLOOD COUNT 3.33 X10'6 (4.70-6.10); RED CELL DISTRIBUTION WIDTH 12.8 % (11.5-14.5); WHITE BLOOD COUNT 6.9 X10'3 (4.5-11.0)
[2023-04-17 19:03] LABS: ALANINE AMINOTRANSFERASE 39 U/L (12-78); ALBUMIN 4.2 G/DL (3.4-5.0); ALBUMIN/GLOBULIN RATIO 1.3 (1.1-1.5); ALKALINE PHOSPHATASE 60 IU/L (46-116); ANION GAP 12 (8-16); ASPARTATE AMINO TRANSFERASE 31 U/L (10-37); BILIRUBIN,TOTAL 0.2 MG/DL (0.1-1.0); BLOOD UREA NITROGEN 15 MG/DL (7-18); BUN/CREATININE RATIO 10.4 (10.0-20.0); CALCIUM 9.1 MG/DL (8.5-10.1); CHLORIDE 105 MMOL/L (99-107); CREATININE 1.44 MG/DL (0.60-1.10); GLUCOSE 129 MG/DL (70-104); LIPASE 133 U/L (73-393); POTASSIUM 3.6 MMOL/L (3.5-5.1); SODIUM 143 MMOL/L (135-145); TOTAL CARBON DIOXIDE 26.2 MMOL/L (24-32); TOTAL PROTEIN 7.5 G/DL (6.4-8.2); eCRCL 81 ML/MIN; eGFR 58 ML/MIN
[2023-04-17 19:12] LABS: TOTAL CELLS COUNTED 100
[2023-04-17 19:13] LABS: PLATELET ESTIMATE NORMAL
== END 2023-04-17 20:19 | disposition home or self-care (01) ==
LOC: ER 17:30
DX: N17.9 Acute kidney failure, unspecified (principal)
CPT/HCPCS: 80053; 83690; 85007; 85025; 99283

== ENCOUNTER 2023-06-20 20:26 | Emergency (ER) | payer MEDICAID ==
[~2023-06-20] VITALS: Ht 180.3 cm; Wt 81.8 kg
[2023-06-20 20:33] VITALS: BP 168/80; PULSE 97; RESP 18; TEMP 98; O2SAT 96
== END 2023-06-20 21:05 ==
LOC: ER 20:26
DX: Z79.899 Other long term (current) drug therapy
CPT/HCPCS: 99283

== ENCOUNTER 2023-12-29 15:35 | Emergency (ER) | payer MEDICAID ==
[~2023-12-29] VITALS: Ht 180.3 cm; Wt 87.7 kg
[2023-12-29 16:04] VITALS: BP 123/82; PULSE 89; TEMP 97.8; O2SAT 100
[2023-12-29 16:58] VITALS: RESP 18
[2023-12-29] MEDS: HYDROcodone/acetaminophen 10/325mg tab PO ONE (16:58)
[2023-12-29] MEDS ORDERED: HYDR-3972 PO (17:29)
== END 2023-12-29 18:29 | disposition home or self-care (01) ==
LOC: ER 15:35
DX: S82.491A Other fracture of shaft of right fibula, initial encounter for closed fracture (principal); W05.1XXA Fall from non-moving nonmotorized scooter, initial encounter; Y93.89 Activity, other specified; Y92.89 Other specified places as the place of occurrence of the external cause; Y99.8 Other external cause status
CPT/HCPCS: 29515; 73590; 73610; 73630; 99284; A6449

== ENCOUNTER 2025-04-06 15:21 | Emergency (ER) | payer MEDICAID, OTHER ==
[~2025-04-06] VITALS: Ht 180.3 cm; Wt 83.2 kg
[2025-04-06 18:54] VITALS: BP 124/78; PULSE 72; RESP 18; O2SAT 98
--- NOTE | 2025-04-06 20:23 | Physician Documentation ---
History of Present Illness ~ Chief Complaint: Wound Stated Complaint: "STITCHES CAME OUT" Time Seen by MD: 15:51 Primary Medical Doctor: [facility] Male that presents to emergency department for evaluation as a wound to his back. Patient unfortunately had a lipoma removed several weeks ago and noelle placed at that time. Patient reports that the noelle were removed at the appropriate time since that time the wound has reopened or dehisced had non purulent drainage. She reports that he has gone swimming a couple of times although he did try to cover the area prior to getting in the water. Denied any fevers or any other constitutional symptoms at this time. Tetanus within 5 years?: Yes Medication Reconciliation Allergies: Coded Allergies: No Known Allergies (Unverified , 06/20/23) Past Medical History Past Medical History: No Pertinent History Past Surgical History: noncontributory Alcohol Use: Abuse Drug Use: none Lives In: Home Review of Systems ROS As stated above in the HPI, otherwise all systems are reviewed and negative. Physical Exam Vital Signs: Temperature: 97.8, Source: Temporal, Heart Rate: 72, Respiratory Rate: 18, BP: 124/78, Pulse Oximetry: 98, Weight: 83.250 Physical Exam VITALS: Reviewed and as above. GENERAL: Alert, no apparent distress. HEENT: Normocephalic, atraumatic, PERRL, EOMI, dry mucosa, no erythema RESPIRATORY: Lungs clear, normal breath sounds, no respiratory distress. CHEST: No accessory muscle use, no retractions CV: Regular rate, rhythm, no edema, no murmur, No: JVD GI: Soft, non-tender, bowels sounds present, no rebound, guarding, or rigidity BACK: No CVA tenderness, or swelling MUSCULOSKELETAL No deformities, no edema SKIN: Warm and dry, dehiscence to surgical incision secondary to lipoma removal on the back. NEURO: Oriented x4, No motor or sensory deficit PSYCH: Normal mood and affect, no agitation Progress Results/Orders Results/Orders Vital Signs 04/06/25 04/06/25 15:28 18:54 Temp 97.8 Pulse 73 72 Resp 18 18 B/P (MAP) 126/80 124/78 (93) Pulse Ox 98 98 Departure Disposition: 01 HOME / SELF CARE / HOMELESS Impression: Primary Impression: Wound Condition: Stable Discharge Instructions: Wound Dehiscence, [id number] Additional Instructions: Your seen for evaluation of a dehisced surgical incision to her back. Was cleaned irrigated reapproximated with Steri-Strips. This winter remain partially open to allow for proper healing. Avoid swimming and swimming pools, or lakes until the wound has completely healed. It then prescribe antibiotics p lease take them until they are completed. Primary care provider or return to the emergency department if you have any worsening of symptoms or any additional concerning symptoms particularly fever present. Referrals: NO PRIMARY CARE PROVIDER (PCP) Prescriptions Doxycycline Hyclate (Doxycycline Hyclate) 100 Mg Capsule 1 CAP PO Q12H for 10 Days, #20 CAP Prov: LUISITO XIONG 04/06/25 Education Educated: Patient Educated regarding: treatment, need for follow up LUISITO XIONG Apr 06, 2025 20:23
[2025-04-06] MEDS ORDERED: DOXY-224 PO (20:33)
[2025-04-06] MEDS: DOXYCYCLINE 100MG CAPSULE PO STA (20:44)
[2025-04-06 20:45] VITALS: TEMP 97.8
== END 2025-04-06 20:46 | disposition home or self-care (01) ==
LOC: ER 15:23
DX: S31.000A Unspecified open wound of lower back and pelvis without penetration into retroperitoneum, initial encounter (principal); X58.XXXA Exposure to other specified factors, initial encounter; Y93.89 Activity, other specified; Y92.89 Other specified places as the place of occurrence of the external cause; Y99.8 Other external cause status
CPT/HCPCS: 99283; A6258; A6449

== ENCOUNTER 2025-07-28 23:15 | Emergency (ER) | payer MEDICAID ==
[~2025-07-28] VITALS: Ht 180.3 cm; Wt 88.9 kg
[2025-07-28 23:45] LABS: MEAN PLATELET VOLUME 7.8 FL (7.4-10.4); RED CELL DISTRIBUTION WIDTH 13.7 % (11.5-14.5)
--- NOTE | 2025-07-28 23:51 | RADIOLOGY REPORT ---
EXAM: DI CHEST,SINGLE VIEW CLINICAL HISTORY: CP TECHNIQUE: Single PA view of the chest WID: COMPARISON: CHEST,SINGLE VIEW on DOS: 03/22/23 FINDINGS: Lines and tubes: None Chest: The heart size and pulmonary vasculature is within normal limits. No pleural effusion, pneumothorax, or consolidation. The osseous structures are grossly intact. Mild multilevel thoracic spondylosis. IMPRESSION: 1. No acute cardiopulmonary abnormality.
[2025-07-29 00:26] LABS: CREATININE 1.05 MG/DL (0.60-1.10); PRO BRAIN NATRIURETIC PEPTIDE < 30 PG/ML (0-125); TOTAL CARBON DIOXIDE 29.3 MMOL/L (24-32); eCRCL 109 ML/MIN; eGFR 82 ML/MIN
--- NOTE | 2025-07-29 02:23 | Physician Documentation ---
History of Present Illness ~ Chief Complaint: Syncope Stated Complaint: PASSED OUT TODAY/FALL X 4 HOURS AGO Time Seen by MD: 02:18 OK to notify your PCP?: Yes Primary Medical Doctor: Greg WYATT Source: patient, RN/MD, RN notes reviewed, old records Mode of Arrival: POV Exam Limitations: no limitations HPI This patient has been having some left flank pain. It radiates in different directions worse with movement. Sometimes his quite severe. He has not had pain like this before. Has no history of kidney stones hematuria or gallstones. Patient does have scoliosis. He has also had hemodialysis five rounds when he had severe rhabdomyolysis. For that reason he has not taken any anti- inflammatories for his pain. He denies any frequency urgency or burning. He is otherwise in good health has no other complaints except slight headache from hitting his head at 4:00 p.m. when he has syncopal episode secondary to doing some web it is. He is feeling fine now. He is here for evaluation and care. Medication Reconciliation Allergies: Coded Allergies: No Known Allergies (Unverified , 06/20/23) Past Medical History Past Medical History: No Pertinent History Past Surgical History: noncontributory Smoking Status: Current every day smoker Alcohol Use: Abuse Drug Use: none Lives In: Home Review of Systems All Other Systems at this time: Reviewed and Negative Physical Exam Vital Signs: RN Vital Signs have been reviewed: Yes, Temperature: 98.0, Heart Rate: 69, Respiratory Rate: 16, BP: 127/73, Pulse Oximetry: 97, Weight: 88.900 Oxygen Flow Rate: 0 Physical Exam General: The patient is well developed, well nourished, nontoxic appearing and is in no acute distress. Skin: Chemult, warm and dry with no rashes. HEENT: Head was normocephalic and atraumatic. Eyes - pupils equal, round, reactive to light and accommodation. Extraocular movements were intact. Conjunctivae were nonicteric. The mouth and oropharynx were clear with moist mucous membranes. There were no pharyngeal exudates or erythema. Neck: Supple and nontender. There was no jugular venous distention, lymphadenopathy, thyromegaly or masses. Chest: Clear to auscultation bilaterally without wheezes, rales or rhonchi. No accessory muscle use. No dullness to percussion. Heart: Rate regular and rhythmic. S1, S2. No murmurs. Palpation of the chest wall was normal. No rubs or thrills. Abdomen: Soft, nontender and nondistended. Positive bowel sounds. No guarding or rebound. No hepatosplenomegaly or palpable masses. Back: No CVA tenderness but some mild left flank pain Extremities: No cyanosis, clubbing or edema. The patient moves all extremities. Pulses were equal and symmetric. Neurologic: Motor sensory grossly intact Psychologic: The patient was oriented to person, place and time. The patient demonstrated appropriate judgement and insight. Progress Results/Orders Reviewed/noted all lab results: Yes Results/Orders Orders - TONY EDWARDS MD Chest,Single View (07/28/25 23:41) Monitor (07/28/25:) Saline Lock (07/28/25:) Oxygen (07/28/25:) Electrocardiogram (07/28/25 23:) Hs Troponin I W Calculations (07/29/25 02:26) Myoglobin Serum (07/29/25 02:25) Po Challenge (07/29/25 02:47) Completed Orders - TONY EDWARDS MD Chest,Single View (07/28/25 23:41) Cbc/Diff (07/28/25 23:) BMP (07/28/25 23:26) PBNP (07/28/25 23:26) Hs Troponin I W Calculations (07/28/25 23:26) Hs Troponin I W Calculations (07/29/25 01:26) Urinalysis, Cult If Indicated (07/29/25 02:25) Drug Screen, Urine (07/29/25 02:25) CK (07/28/25 23:34) MG (07/28/25 23:34) Naproxen Tablet (Naprosyn Tablet) (07/29/25 02:45) Cyclobenzaprine Tablet (Flexeril Tablet) (07/29/25 02:45) Medications Received in ER Medications (Trade) Dose Ordered Sig/Ashley Route PRN Reason Start Time Stop Time Status Last Admin Dose Admin (Naprosyn tablet) 500 mg ONCE ONCE PO 07/29/25 02:45 07/29/25 02:46 DC 07/29/25 02:53 500 MG (Flexeril tablet) 10 mg ONCE ONCE PO 07/29/25 02:45 07/29/25 02:46 DC 07/29/25 02:53 10 MG Vital Signs 07/28/25 07/29/25 23:22 00:50 Temp 98.0 Pulse 69 Resp 16 16 B/P (MAP) 127/73 Pulse Ox 97 O2 Flow Rate 0 Laboratory Tests Test 07/28/25 23:34 07/29/25 01:22 07/29/25 03:32 White Blood Count 7.7 Red Blood Count 4.62 L Hemoglobin 15.0 Hematocrit 43.7 Mean Corpuscular Volume 94.5 Mean Corpuscular Hemoglobin 32.5 H Mean Corpuscular Hemoglobin Concent 34.4 Red Cell Distribution Width 13.7 Platelet Count 268 Mean Platelet Volume 7.8 Neutrophils (%) (Auto) 43.6 Lymphocytes (%) (Auto) 41.0 Monocytes (%) (Auto) 13.5 H Eosinophils (%) (Auto) 1.4 Basophils (%) (Auto) 0.5 Neutrophils # (Auto) 3.4 Lymphocytes # (Auto) 3.2 Monocytes # (Auto) 1.0 H Eosinophils # (Auto) 0.1 Basophils # (Auto) 0.0 CBC Comment Sodium Level 140 Potassium Level 4.4 Chloride Level 104 Carbon Dioxide Level 29.3 Anion Gap 7 L Blood Urea Nitrogen 14 Creatinine 1.05 Estimated GFR/1.73 m2 82 BUN/Creatinine Ratio 13.3 Glucose Level 112 H Calcium Level 8.9 Magnesium Level 2.0 Total Creatine Kinase 204 Troponin I High Sensitivity 5 6 Pro-B-Type Natriuretic Peptide < 30 Albumin 4.3 Chemistry Comments Troponin I High Sens Percent Delta 20 Troponin I Hi Sens Absolute Change 1 Urine Specimen Description Cln catch midstream Urine Color Yellow Urine Clarity Clear Urine pH 5.5 Urine Specific [place] 1.025 Urine Protein Negative Urine Glucose (UA) Negative Urine Ketones Negative Urine Occult Blood Negative Urine Nitrite Negative Urine Bilirubin Negative Urine Urobilinogen 0.2 Urine Leukocyte Esterase Negative Urine Culture Indicated Not ind Volume Urine Centrifuged 10 ml Urine Comment Urine Opiates Screen Negative Urine Methadone Screen Negative Urine Fentanyl Screen Negative Urine Barbiturates Screen Negative Urine Phencyclidine Screen Negative Urine Amphetamines Screen Negative Urine Benzodiazepines Screen Negative Urine Cocaine Screen Negative Urine Cannabinoids Screen Positive Drug Screen Comment Re-Evaluation Re-Evaluation : Re-Evaluation: Improved Progress Patient was seen and examined. Patient is given reassurance. Patient had some concern over rhabdomyolysis. Patient's BUN creatinine is within normal limits. Urinalysis has been ordered in his pending. Also he has some left flank pain which was quite severe did not seem to be his normal back pain. Dissection was considered as well as kidney stones or UTI. Patient lacks UTI symptoms such as frequency urgency or burning. As far as kidney stones he will receive partial workup. No reason to do any scan of his head there was no signs of head trauma despite him hitting his head when he passed out. Patient was given anti- inflammatories after his laboratory work showed normal chemistry and he was given a muscle relaxants as well. EKG/XRAY/CT/US/VASC/MRI Chest X-Ray : Additional Comments EXAM: DI CHEST,SINGLE VIEW CLINICAL HISTORY: CP TECHNIQUE: Single PA view of the chest WID: COMPARISON: CHEST,SINGLE VIEW on DOS: 03/22/23 FINDINGS: Lines and tubes: None Chest: The heart size and pulmonary vasculature is within normal limits. No pleural effusion, pneumothorax, or consolidation. The osseous structures are grossly intact. Mild multilevel thoracic spondylosis. IMPRESSION: 1. No acute cardiopulmonary abnormality. Medical Decision Making Additional information obtaine: old records Findings Low back pain, musculoskeletal spasm, kidney stones, dissection, syncope were all considered Differential Dx:Considerations: Include: anemia, CVA, dehydration, dysrhythmia, electrolyte disorder, encephalopathy, hypoglycemia, hypovolemia, myocardial infarction, pulmonary embolus, TIA, vasovagal, vertigo central, vertigo peripheral, vestibular neuronitis, other Departure Disposition: 01 HOME / SELF CARE / HOMELESS Impression: Primary Impression: Low back pain Qualified Codes: M54.50 - Low back pain, unspecified Additional Impression: Syncope Qualified Codes: R55 - Syncope and collapse Condition: Stable Discharge Instructions: Acute Back Pain, Adult Referrals: NO PRIMARY CARE PROVIDER (PCP) Education Educated: Patient Educated regarding: diagnosis, need for follow up Signature Scribe Signature: n Attestation: The note accurately reflects work and decisions made by me.Tony Edwards MD 07/29/25 02:22 TONY EDWARDS MD Jul 29, 2025 02:23
[2025-07-29 03:57] LABS: URINE AMPHETAMINE SCREEN NEGATIVE (Neg); URINE BARBITUATE SCREEN NEGATIVE (Neg); URINE BENZODIAZEPINES SCREEN NEGATIVE (Neg); URINE CANNABINOID SCREEN POSITIVE (Neg); URINE COCAINE SCREEN NEGATIVE (Neg); URINE METHADONE SCREEN NEGATIVE (Neg); URINE OPIATE SCREEN NEGATIVE (Neg); URINE PHENCYCLIDINE SCREEN NEGATIVE (Neg)
[2025-07-29 04:02] LABS: LEUKOCYTE ESTERASE ,URINE NEGATIVE (Neg); NITRITES, URINE NEGATIVE (Neg); OCCULT BLOOD,URINE NEGATIVE (Neg)
[2025-07-29 04:15] LABS: UA COLLECTION TYPE CLN CATCH MIDSTREAM
[2025-07-29 04:35] VITALS: BP 132/75; PULSE 72; RESP 16; TEMP 98; O2SAT 98
--- NOTE | 2025-07-29 05:32 | ELECTROCARDIOGRAPH REPORT ---
[facility] Test Date: 2025-07-28 Test Time: 23:25:23 Pat Name: ARACELIS DIETZ Department: EMERGENCY ROOM [id number] Room: Gender: M Hide Curer: NELSON : 1995 Requested By: BROOKLYNN EDWARDS Order Number: [id number] Reading MD: Dr. Brooklynn Edwards Measurements Intervals [place] Rate: 79 P: 69 VT: 160 QRS: 94 QRSD: 95 T: 35 QT: 391 QTc: 449 Interpretive Statements Sinus arrhythmia Borderline right axis deviation ST elev, probable normal early repol pattern Electronically Signed On 07-29-2025 18:05:[address] Brooklynn Edwards Please click the below link to view image of tracing.
== END 2025-07-29 04:37 | disposition home or self-care (01) ==
LOC: ER 23:16
DX: M54.50 Low back pain, unspecified (principal); R55 Syncope and collapse; R10.A2 Flank pain, left side; R51.9 Headache, unspecified; F17.200 Nicotine dependence, unspecified, uncomplicated; R06.02 Shortness of breath; F10.10 Alcohol abuse, uncomplicated; Y90.9 Presence of alcohol in blood, level not specified; Z79.899 Other long term (current) drug therapy
CPT/HCPCS: 36415; 71045; 80048; 80305; 81003; 82550; 83735; 83880; 84484; 85025; 93005; 99285